=== PATIENT | female | born 1935 | race African-American/Black ===

== ENCOUNTER → 2016-07-27 | Outpatient (CLI) | payer MEDICARE, BC ==
[~2016-07-27] MED LIST: ACET325C PO; AMLO-511 PO; ASPI81TA2 PO; BENZ-26 PO; CAPS60CR TP; DEXT1CAP3 PO; DICL2100G TP; DOCU250C91 PO; FERR-89 PO; LACT1TAB11 PO; MIRT15 PO; MULT-29 PO; NYST5L PO; PANT40TA25 PO; PHEN100C23 PO; RISP0.252 PO; SENN-161 PO; TYL3 PO
[2016-07-27 12:14] VITALS: BP 131/73
== END | disposition home or self-care (01) ==
LOC: SRCNTR 12:07
PROVIDERS: ATTEND Hospitalist
DX: I10 Essential (primary) hypertension (principal); D64.9 Anemia, unspecified; I69.120 Aphasia following nontraumatic intracerebral hemorrhage; K46.9 Unspecified abdominal hernia without obstruction or gangrene; R60.0 Localized edema; I82.409 Acute embolism and thrombosis of unspecified deep veins of unspecified lower extremity; I61.9 Nontraumatic intracerebral hemorrhage, unspecified; H53.9 Unspecified visual disturbance; H10.9 Unspecified conjunctivitis; L91.8 Other hypertrophic disorders of the skin; I63.8 Other cerebral infarction; E78.5 Hyperlipidemia, unspecified; M19.90 Unspecified osteoarthritis, unspecified site; Z95.828 Presence of other vascular implants and grafts
CPT/HCPCS: G0463

== ENCOUNTER → 2016-07-31 | Outpatient (CLI) | payer MEDICARE, BC ==
[~2016-07-31] MED LIST changes: -ACET325C PO; -BENZ-26 PO; -DOCU250C91 PO; -NYST5L PO; -PANT40TA25 PO; -PHEN100C23 PO; -TYL3 PO
[2016-07-31 10:31] VITALS: BP 111/81
== END | disposition home or self-care (01) ==
LOC: SRCNTR 10:11
PROVIDERS: ATTEND Hospitalist
DX: I10 Essential (primary) hypertension (principal); E78.5 Hyperlipidemia, unspecified; R47.01 Aphasia; I82.409 Acute embolism and thrombosis of unspecified deep veins of unspecified lower extremity; R60.0 Localized edema; R51 Headache; M19.90 Unspecified osteoarthritis, unspecified site; H10.9 Unspecified conjunctivitis; K46.9 Unspecified abdominal hernia without obstruction or gangrene; Z86.73 Personal history of transient ischemic attack (TIA), and cerebral infarction without residual deficits; Z86.79 Personal history of other diseases of the circulatory system; Z95.828 Presence of other vascular implants and grafts
CPT/HCPCS: G0463

== ENCOUNTER → 2016-07-31 | Outpatient (CLI) | payer MEDICARE, BC ==
[2016-07-31 10:39] LABS: BASOPHILS # (AUTO) 0.06 K/uL (0.00-0.20); BASOPHILS % (AUTO) 0.6 % (0.0-2.0); EOSINOPHILS # (AUTO) 0.32 K/uL (0.00-0.70); EOSINOPHILS % (AUTO) 3.51 % (1.0-6.0); HEMATOCRIT 42.9 % (36-46); HEMOGLOBIN 13.6 g/dL (12.0-16.0); LYMPHOCYTES # (AUTO) 2.8 K/uL (1.0-4.8); LYMPHOCYTES % (AUTO) 30.6 % (22.0-44.0); MEAN CORPUSCULAR HEMOGLOBIN 29.7 pg (26.0-34.0); MEAN CORPUSCULAR HGB CONC 31.8 G/dL (31.0-37.0); MEAN CORPUSCULAR VOLUME 94 fL (80-100); MONOCYTES # (AUTO) 0.8 K/uL (0.1-1.0); MONOCYTES % (AUTO) 8.9 % (2.0-9.0); NEUTROPHILS # (AUTO) 5.1 K/uL (1.8-7.7); NEUTROPHILS % (AUTO) 56.3 % (40.0-70.0); PLATELET COUNT (AUTO) 160 K/uL (150-450); RED BLOOD CELL COUNT(AUTO) 4.58 MIL/uL (4.00-5.20); RED CELL DISTRIBUTION WIDTH 14.5 % (11.5-14.5)
[2016-07-31 11:16] LABS: BILIRUBIN,TOTAL 0.2 mg/dL (0.1-1.0); CALCIUM, TOTAL 9.6 mg/dL (8.8-10.5); CHOL/HDL RATIO 5.7 (3.9-5.7); CREATININE 1.06 mg/dL (0.60-1.30); POTASSIUM 4.2 mmol/L (3.5-5.1); THYROID STIMULATING HORMONE 4.35 uIU/mL (0.36-3.74); TOTAL PROTEIN, SERUM 8.4 g/dL (6.4-8.2)
== END | disposition home or self-care (01) ==
LOC: LABPV 09:25
PROVIDERS: ATTEND Hospitalist
DX: I10 Essential (primary) hypertension (principal); K46.9 Unspecified abdominal hernia without obstruction or gangrene
CPT/HCPCS: 84439; 84443

== ENCOUNTER → 2016-09-25 | Outpatient (CLI) | payer MEDICARE, BC ==
[~2016-09-25] MED LIST changes: +[UNRECOGNIZED DRUG - CODE] PO
[2016-09-25 11:56] VITALS: BP 109/56
== END | disposition home or self-care (01) ==
LOC: SRCNTR 11:19
PROVIDERS: ATTEND Hospitalist
DX: E03.9 Hypothyroidism, unspecified (principal)
CPT/HCPCS: G0463

== ENCOUNTER → 2016-11-20 | Outpatient (CLI) | payer MEDICARE, BC ==
[~2016-11-20] MED LIST changes: -ASPI81TA2 PO; +ASPI81TA39 PO; +DSS100 PO; -FERR-89 PO; +HYDR-309 PO; +LEVO25TA9 PO; +[UNRECOGNIZED DRUG - CODE] PO; -[UNRECOGNIZED DRUG - CODE] PO
[2016-11-20 11:48] VITALS: BP 113/61
== END | disposition home or self-care (01) ==
LOC: SRCNTR 11:22
PROVIDERS: ATTEND Hospitalist
DX: I10 Essential (primary) hypertension (principal); E03.9 Hypothyroidism, unspecified; R60.1 Generalized edema; I82.409 Acute embolism and thrombosis of unspecified deep veins of unspecified lower extremity; I61.9 Nontraumatic intracerebral hemorrhage, unspecified; K46.9 Unspecified abdominal hernia without obstruction or gangrene; R47.01 Aphasia; E78.5 Hyperlipidemia, unspecified; M19.90 Unspecified osteoarthritis, unspecified site; Z95.828 Presence of other vascular implants and grafts
CPT/HCPCS: G0463

== ENCOUNTER 2016-12-15 13:22 | Inpatient (IN) | payer MEDICARE, BC ==
[~2016-12-15] VITALS: Ht 160 cm; Wt 105.0 kg
[2016-12-15 15:42] LABS: BASOPHILS % (AUTO) 1.1 % (0.0-2.0); EOSINOPHILS % (AUTO) 4.1 % (1.0-6.0); HEMATOCRIT 39.2 % (36-46); HEMOGLOBIN 13.1 g/dL (12.0-16.0); LYMPHOCYTES # (AUTO) 2.8 K/uL (1.0-4.8); LYMPHOCYTES % (AUTO) 32.2 % (22.0-44.0); MEAN CORPUSCULAR HGB CONC 33.3 G/dL (31.0-37.0); MEAN CORPUSCULAR VOLUME 90 fL (80-100); MONOCYTES # (AUTO) 0.8 K/uL (0.1-1.0); MONOCYTES % (AUTO) 9.6 % (2.0-9.0); NEUTROPHILS # (AUTO) 4.6 K/uL (1.8-7.7); PLATELET COUNT (AUTO) 161 K/uL (150-450); RED BLOOD CELL COUNT(AUTO) 4.36 MIL/uL (4.00-5.20); RED CELL DISTRIBUTION WIDTH 14.1 % (11.5-14.5); WHITE BLOOD COUNT (AUTO) 8.7 K/uL (4.5-11.0)
[2016-12-15] MEDS ORDERED: GADOBUTROL 1 MMOL/ML 10 ML VIAL IVP ONE (15:42)
[2016-12-15 15:53] LABS: ANION GAP 9 mmol/L (8-16); CALCIUM, TOTAL 9.6 mg/dL (8.8-10.5); CARBON DIOXIDE 29 mmol/L (22-29); CHLORIDE 103 mmol/L (98-107); CREATININE 0.88 mg/dL (0.60-1.30); GLOMERULAR FILTR. RATE CALC > 60 mL/min (>60); POTASSIUM 4.1 mmol/L (3.5-5.1); SODIUM SERUM 141 mmol/L (136-145); UREA NITROGEN, BLOOD 14 mg/dL (7-18)
[2016-12-15 15:59] LABS: ALANINE AMINOTRANSFERASE 22 U/L (12-78); ALBUMIN 3.9 g/dL (3.4-5.0); ASPARTATE AMINOTRANSFERASE 16 U/L (15-37); BILIRUBIN,TOTAL 0.2 mg/dL (0.1-1.0); TOTAL PROTEIN, SERUM 8.3 g/dL (6.4-8.2)
[2016-12-15 16:05] LABS: INR 0.9 (0.9-1.1); PROTHROMBIN TIME 9.9 SEC (9.4-11.6)
[2016-12-15 18:41] LABS: APPEARANCE,URINE CLOUDY (CLEAR); GLUCOSE, URINE (UA) NEGATIVE (NEGATIVE); KETONES,URINE NEGATIVE (NEGATIVE); LEUKOCYTE ESTERASE ,URINE NEGATIVE (NEGATIVE); OCCULT BLOOD,URINE SMALL (NEGATIVE); PH,URINE 5.5 (5.0-8.0); PROTEIN,URINE NEGATIVE (NEGATIVE)
[2016-12-15 18:47] LABS: ADD UA MICROSCOPIC YES
[2016-12-15 18:48] LABS: SQUAMOUS EPITHELIAL CELL,UR Moderate /LPF (None Seen)
[2016-12-15] MEDS ORDERED: ZOLPIDEM TARTRATE 5 MG TABLET PO PRN (19:00)
[2016-12-15] MEDS ORDERED: IPRATROPIUM BROMIDE 0.5 MG/2.5 ML NEB SOLUTION NEB PRN (19:00)
[2016-12-15] MEDS ORDERED: ACETAMINOPHEN 325 MG TABLET PO PRN (19:00)
[2016-12-15] MEDS ORDERED: ALBUTEROL SULFATE 2.5 MG/0.5 ML NEB SOLUTION NEB PRN (19:00)
[2016-12-15] MEDS ORDERED: DEXTROMETHORPHAN HBR/QUINIDINE 20/10 MG CAPSULE PO SCH (19:00)
[2016-12-15] MEDS ORDERED: ONDANSETRON HCL 4 MG/2 ML VIAL IVP PRN (19:00)
[2016-12-15 19:42] VITALS: BP 139/73
[2016-12-15] MEDS: SENNA 187 MG TABLET PO SCH (20:40)
[2016-12-15] MEDS: HYDROCODONE/ACETAMINOPHEN 5-325 MG TABLET PO SCH ×2 (20:40→23:00)
[2016-12-15] MEDS: DOCUSATE SODIUM 100 MG CAPSULE PO SCH (20:40)
[2016-12-15] MEDS: MIRTAZAPINE 15 MG TABLET PO SCH (20:42)
[2016-12-16 00:03] VITALS: BP 100/53
[2016-12-16] MEDS: HYDROCODONE/ACETAMINOPHEN 5-325 MG TABLET PO SCH ×3 (03:00→11:00)
[2016-12-16 04:33] VITALS: BP 112/59
[2016-12-16 07:09] VITALS: BP 107/59
[2016-12-16] MEDS: DOCUSATE SODIUM 100 MG CAPSULE PO SCH ×2 (08:48→21:12)
[2016-12-16] MEDS: PANTOPRAZOLE SODIUM 40 MG DR TABLET PO SCH (08:48)
[2016-12-16] MEDS: MULTIVITAMINS WITH MINERALS, THERAPEUTIC TABLET PO SCH (08:49)
[2016-12-16] MEDS: LACTOBACILLUS ACIDOPHILUS/BULGARICUS GRANULES PACKET PO SCH (08:49)
[2016-12-16] MEDS: LEVOTHYROXINE SODIUM 25 MCG TABLET PO SCH (08:49)
[2016-12-16] MEDS: ASCORBIC ACID 500 MG TABLET PO SCH (08:49)
[2016-12-16] MEDS: DICLOFENAC SODIUM 1% 100 GM GEL [2GM] TP SCH (08:50)
[2016-12-16] MEDS: DEXTROMETHORPHAN HBR/QUINIDINE 20/10 MG CAPSULE PO SCH ×2 (09:00→21:14)
[2016-12-16 11:39] VITALS: BP 100/54
[2016-12-16] MEDS ORDERED: HYDROCODONE/ACETAMINOPHEN 5-325 MG TABLET PO PRN (15:00)
[2016-12-16] MEDS ORDERED: INFLUENZA VIRUS VACCINE QVS 2017-18 (3YR+)/PF 60 MCG/0.5 ML SYRINGE IM ONE (16:00)
[2016-12-16 16:09] VITALS: BP 117/58
[2016-12-16] MEDS ORDERED: SIMV-260 PO (18:10)
[2016-12-16 19:55] VITALS: BP 118/62
[2016-12-16] MEDS: SENNA 187 MG TABLET PO SCH (21:12)
[2016-12-16] MEDS: MIRTAZAPINE 15 MG TABLET PO SCH (21:12)
[2016-12-17] VITALS (7 sets, daily range): BP systolic 112–143; BP diastolic 58–84
[2016-12-17] MEDS: PANTOPRAZOLE SODIUM 40 MG DR TABLET PO SCH (08:12)
[2016-12-17] MEDS: DOCUSATE SODIUM 100 MG CAPSULE PO SCH ×2 (08:12→21:15)
[2016-12-17] MEDS: LACTOBACILLUS ACIDOPHILUS/BULGARICUS GRANULES PACKET PO SCH (08:12)
[2016-12-17] MEDS: MULTIVITAMINS WITH MINERALS, THERAPEUTIC TABLET PO SCH (08:13)
[2016-12-17] MEDS: DEXTROMETHORPHAN HBR/QUINIDINE 20/10 MG CAPSULE PO SCH ×2 (08:13→21:15)
[2016-12-17] MEDS: LEVOTHYROXINE SODIUM 25 MCG TABLET PO SCH (08:13)
[2016-12-17] MEDS: DICLOFENAC SODIUM 1% 100 GM GEL [2GM] TP SCH (08:14)
[2016-12-17] MEDS: ASCORBIC ACID 500 MG TABLET PO SCH (08:14)
[2016-12-17] MEDS ORDERED: SODIUM CHLORIDE 0.9% 100 ML ONE (13:06)
[2016-12-17] MEDS: CefTRIAXone 1 GM/DEXTROSE 50 ML IV SCH (13:20)
[2016-12-17 14:02] LABS: THYROID STIMULATING HORMONE 4.03 uIU/mL (0.36-3.74)
[2016-12-17] MEDS: SENNA 187 MG TABLET PO SCH (21:15)
[2016-12-17] MEDS: MIRTAZAPINE 15 MG TABLET PO SCH (21:15)
[2016-12-18 04:24] VITALS: BP 119/67
[2016-12-18 06:34] LABS: BASOPHILS % (AUTO) 0.5 % (0.0-2.0); EOSINOPHILS % (AUTO) 4.2 % (1.0-6.0); HEMATOCRIT 33.9 % (36-46); HEMOGLOBIN 11.3 g/dL (12.0-16.0); LYMPHOCYTES # (AUTO) 2.3 K/uL (1.0-4.8); LYMPHOCYTES % (AUTO) 30.1 % (22.0-44.0); MEAN CORPUSCULAR HEMOGLOBIN 30.1 pg (26.0-34.0); MEAN CORPUSCULAR HGB CONC 33.4 G/dL (31.0-37.0); MEAN CORPUSCULAR VOLUME 90 fL (80-100); MONOCYTES # (AUTO) 0.8 K/uL (0.1-1.0); MONOCYTES % (AUTO) 9.9 % (2.0-9.0); NEUTROPHILS # (AUTO) 4.3 K/uL (1.8-7.7); NEUTROPHILS % (AUTO) 55.3 % (40.0-70.0); PLATELET COUNT (AUTO) 175 K/uL (150-450); RED BLOOD CELL COUNT(AUTO) 3.77 MIL/uL (4.00-5.20); WHITE BLOOD COUNT (AUTO) 7.7 K/uL (4.5-11.0)
[2016-12-18 06:58] LABS: ALANINE AMINOTRANSFERASE 16 U/L (12-78); ALBUMIN 3.1 g/dL (3.4-5.0); ANION GAP 6 mmol/L (8-16); ASPARTATE AMINOTRANSFERASE 14 U/L (15-37); BILIRUBIN,TOTAL 0.2 mg/dL (0.1-1.0); CALCIUM, TOTAL 8.6 mg/dL (8.8-10.5); CARBON DIOXIDE 30 mmol/L (22-29); CHLORIDE 104 mmol/L (98-107); CREATININE 1.01 mg/dL (0.60-1.30); GLOMERULAR FILTR. RATE CALC > 60 mL/min (>60); POTASSIUM 3.8 mmol/L (3.5-5.1); SODIUM SERUM 140 mmol/L (136-145); TOTAL PROTEIN, SERUM 6.5 g/dL (6.4-8.2); UREA NITROGEN, BLOOD 16 mg/dL (7-18)
[2016-12-18 07:05] VITALS: BP 146/74
[2016-12-18] MEDS: PANTOPRAZOLE SODIUM 40 MG DR TABLET PO SCH (08:41)
[2016-12-18] MEDS: DEXTROMETHORPHAN HBR/QUINIDINE 20/10 MG CAPSULE PO SCH ×2 (08:41→21:36)
[2016-12-18] MEDS: AmLODIPine BESYLATE 5 MG TABLET PO SCH (08:41)
[2016-12-18] MEDS: DOCUSATE SODIUM 100 MG CAPSULE PO SCH ×2 (08:41→21:36)
[2016-12-18] MEDS: LACTOBACILLUS ACIDOPHILUS/BULGARICUS GRANULES PACKET PO SCH (08:41)
[2016-12-18] MEDS: ASCORBIC ACID 500 MG TABLET PO SCH (08:43)
[2016-12-18] MEDS: DICLOFENAC SODIUM 1% 100 GM GEL [2GM] TP SCH (08:43)
[2016-12-18] MEDS: MULTIVITAMINS WITH MINERALS, THERAPEUTIC TABLET PO SCH (08:43)
[2016-12-18 11:08] VITALS: BP 126/73
[2016-12-18] MEDS: CefTRIAXone 1 GM/DEXTROSE 50 ML IV SCH (12:06)
[2016-12-18 15:15] VITALS: BP 136/73
[2016-12-18 19:35] VITALS: BP 111/62
[2016-12-18] MEDS: SENNA 187 MG TABLET PO SCH (21:36)
[2016-12-18] MEDS: MIRTAZAPINE 15 MG TABLET PO SCH (21:36)
[2016-12-18] MEDS: SIMVASTATIN 20 MG TABLET PO SCH (21:36)
[2016-12-18 23:58] VITALS: BP 116/63
[2016-12-19 04:52] VITALS: BP 128/70
[2016-12-19] MEDS: LEVOTHYROXINE SODIUM 75 MCG TABLET PO SCH (06:20)
[2016-12-19 06:24] LABS: BASOPHILS % (AUTO) 0.4 % (0.0-2.0); EOSINOPHILS % (AUTO) 4.1 % (1.0-6.0); HEMATOCRIT 35.1 % (36-46); HEMOGLOBIN 11.8 g/dL (12.0-16.0); LYMPHOCYTES # (AUTO) 2.4 K/uL (1.0-4.8); LYMPHOCYTES % (AUTO) 29.5 % (22.0-44.0); MEAN CORPUSCULAR HEMOGLOBIN 30.4 pg (26.0-34.0); MEAN CORPUSCULAR HGB CONC 33.5 G/dL (31.0-37.0); MEAN CORPUSCULAR VOLUME 91 fL (80-100); MONOCYTES # (AUTO) 0.8 K/uL (0.1-1.0); MONOCYTES % (AUTO) 9.5 % (2.0-9.0); NEUTROPHILS # (AUTO) 4.6 K/uL (1.8-7.7); NEUTROPHILS % (AUTO) 56.5 % (40.0-70.0); PLATELET COUNT (AUTO) 176 K/uL (150-450); RED BLOOD CELL COUNT(AUTO) 3.87 MIL/uL (4.00-5.20); RED CELL DISTRIBUTION WIDTH 14.1 % (11.5-14.5); WHITE BLOOD COUNT (AUTO) 8.2 K/uL (4.5-11.0)
[2016-12-19 07:12] LABS: ALBUMIN 3.3 g/dL (3.4-5.0); BILIRUBIN,TOTAL 0.2 mg/dL (0.1-1.0); CALCIUM, TOTAL 8.8 mg/dL (8.8-10.5); CREATININE 1.1 mg/dL (0.60-1.30); TOTAL PROTEIN, SERUM 7.1 g/dL (6.4-8.2)
[2016-12-19 07:26] VITALS: BP 127/74
[2016-12-19] MEDS: ASCORBIC ACID 500 MG TABLET PO SCH (08:25)
[2016-12-19] MEDS: AmLODIPine BESYLATE 5 MG TABLET PO SCH (08:25)
[2016-12-19] MEDS: DOCUSATE SODIUM 100 MG CAPSULE PO SCH ×2 (08:25→20:19)
[2016-12-19] MEDS: MULTIVITAMINS WITH MINERALS, THERAPEUTIC TABLET PO SCH (08:25)
[2016-12-19] MEDS: DEXTROMETHORPHAN HBR/QUINIDINE 20/10 MG CAPSULE PO SCH ×2 (08:25→20:18)
[2016-12-19] MEDS: PANTOPRAZOLE SODIUM 40 MG DR TABLET PO SCH (08:25)
[2016-12-19] MEDS: LACTOBACILLUS ACIDOPHILUS/BULGARICUS GRANULES PACKET PO SCH (08:26)
[2016-12-19] MEDS: DICLOFENAC SODIUM 1% 100 GM GEL [2GM] TP SCH (08:26)
[2016-12-19 10:37] LABS: GLUCOSE,POINT OF CARE 138 MG/DL (70-110)
[2016-12-19 11:40] VITALS: BP 123/59
[2016-12-19] MEDS: CefTRIAXone 1 GM/DEXTROSE 50 ML IV SCH (12:35)
[2016-12-19] MEDS ORDERED: SODIUM CHLORIDE 0.9% 100 ML ONE (12:36)
[2016-12-19 15:25] VITALS: BP 123/63
[2016-12-19 19:57] VITALS: BP 112/63
[2016-12-19] MEDS: SIMVASTATIN 20 MG TABLET PO SCH (20:19)
[2016-12-19] MEDS: SENNA 187 MG TABLET PO SCH (20:19)
[2016-12-19] MEDS: MIRTAZAPINE 15 MG TABLET PO SCH (20:19)
[2016-12-19 23:41] VITALS: BP 107/61
[2016-12-20 04:26] VITALS: BP 114/68
[2016-12-20 06:07] LABS: BASOPHILS % (AUTO) 0.6 % (0.0-2.0); EOSINOPHILS % (AUTO) 4.4 % (1.0-6.0); HEMATOCRIT 33.8 % (36-46); HEMOGLOBIN 11.3 g/dL (12.0-16.0); LYMPHOCYTES # (AUTO) 2.5 K/uL (1.0-4.8); LYMPHOCYTES % (AUTO) 30.3 % (22.0-44.0); MEAN CORPUSCULAR HEMOGLOBIN 30.3 pg (26.0-34.0); MEAN CORPUSCULAR HGB CONC 33.5 G/dL (31.0-37.0); MEAN CORPUSCULAR VOLUME 90 fL (80-100); MONOCYTES # (AUTO) 0.7 K/uL (0.1-1.0); MONOCYTES % (AUTO) 8.6 % (2.0-9.0); NEUTROPHILS # (AUTO) 4.5 K/uL (1.8-7.7); NEUTROPHILS % (AUTO) 56.1 % (40.0-70.0); PLATELET COUNT (AUTO) 174 K/uL (150-450); RED BLOOD CELL COUNT(AUTO) 3.74 MIL/uL (4.00-5.20); RED CELL DISTRIBUTION WIDTH 14.2 % (11.5-14.5); WHITE BLOOD COUNT (AUTO) 8.1 K/uL (4.5-11.0)
[2016-12-20] MEDS: LEVOTHYROXINE SODIUM 75 MCG TABLET PO SCH (06:35)
[2016-12-20 06:38] LABS: ALANINE AMINOTRANSFERASE 18 U/L (12-78); ALBUMIN 3.2 g/dL (3.4-5.0); ANION GAP 7 mmol/L (8-16); ASPARTATE AMINOTRANSFERASE 14 U/L (15-37); BILIRUBIN,TOTAL 0.2 mg/dL (0.1-1.0); CALCIUM, TOTAL 8.6 mg/dL (8.8-10.5); CARBON DIOXIDE 30 mmol/L (22-29); CHLORIDE 105 mmol/L (98-107); CREATININE 1.03 mg/dL (0.60-1.30); GLOMERULAR FILTR. RATE CALC > 60 mL/min (>60); POTASSIUM 3.9 mmol/L (3.5-5.1); SODIUM SERUM 142 mmol/L (136-145); TOTAL PROTEIN, SERUM 6.6 g/dL (6.4-8.2); UREA NITROGEN, BLOOD 18 mg/dL (7-18)
[2016-12-20 07:35] VITALS: BP 126/71
[2016-12-20] MEDS: DOCUSATE SODIUM 100 MG CAPSULE PO SCH (09:00)
[2016-12-20] MEDS: LACTOBACILLUS ACIDOPHILUS/BULGARICUS GRANULES PACKET PO SCH (09:21)
[2016-12-20] MEDS: DEXTROMETHORPHAN HBR/QUINIDINE 20/10 MG CAPSULE PO SCH (09:21)
[2016-12-20] MEDS: AmLODIPine BESYLATE 5 MG TABLET PO SCH (09:21)
[2016-12-20] MEDS: ASCORBIC ACID 500 MG TABLET PO SCH (09:22)
[2016-12-20] MEDS: MULTIVITAMINS WITH MINERALS, THERAPEUTIC TABLET PO SCH (09:22)
[2016-12-20] MEDS: DICLOFENAC SODIUM 1% 100 GM GEL [2GM] TP SCH (09:22)
[2016-12-20] MEDS: PANTOPRAZOLE SODIUM 40 MG DR TABLET PO SCH (09:22)
[2016-12-20] MEDS: CefTRIAXone 1 GM/DEXTROSE 50 ML IV SCH (11:13)
[2016-12-20 12:03] VITALS: BP 123/65
[2016-12-20] MEDS ORDERED: CEFX1I IV (12:07)
[2016-12-20] MEDS ORDERED: CEFX2I IV (12:07)
[2016-12-20] MEDS ORDERED: CEFT1PB IV (12:09)
[2016-12-20] MEDS ORDERED: LEVO25TA9 PO (12:19)
[2016-12-20] MEDS ORDERED: PANT40TA25 PO (12:21)
[2017-02-12] MEDS ORDERED: KETO5DRO75 OP (11:06)
== END 2016-12-20 12:20 | DRG 65 ==
LOC: EMS 13:26 → 5S 18:29
PROVIDERS: ADMIT Hospitalist; ATTEND Hospitalist
PROC: 3E0234Z Introduction of Serum, Toxoid and Vaccine into Muscle, Percutaneous Approach (ICD-10-PCS; principal; 2016-12-16)
DX: I63.9 Cerebral infarction, unspecified (principal); N39.0 Urinary tract infection, site not specified; E44.0 Moderate protein-calorie malnutrition; G93.89 Other specified disorders of brain; Z68.41 Body mass index [BMI] 40.0-44.9, adult; I67.2 Cerebral atherosclerosis; F48.2 Pseudobulbar affect; E03.9 Hypothyroidism, unspecified; B96.20 Unspecified Escherichia coli [E. coli] as the cause of diseases classified elsewhere; E78.5 Hyperlipidemia, unspecified; I10 Essential (primary) hypertension; Z86.711 Personal history of pulmonary embolism; I69.320 Aphasia following cerebral infarction; Z23 Encounter for immunization
CPT/HCPCS: 70450; 70553; 82962; 84439; 84443; 87086; 90471; 93005; 93880; 93970; 97163; 97167; 97530; 97535; 99285; A9585; J0696; J7050

== ENCOUNTER 2016-12-20 12:45 | Inpatient (IN) | payer MEDICARE, BC ==
[~2016-12-20] VITALS: Ht 162.6 cm; Wt 81.2 kg
[~2016-12-20 12:45] MED LIST changes: -CAPS60CR TP; +CEFT1PB IV; +CEFX1I IV; +CEFX2I IV; +PANT40TA25 PO; -SENN-161 PO; +SIMV-260 PO
[2016-12-20 13:00] VITALS: BP 115/64
[2016-12-20] MEDS ORDERED: ACETAMINOPHEN 325 MG TABLET PO PRN (14:30)
[2016-12-20 15:45] VITALS: BP 122/67
[2016-12-20] MEDS: DICLOFENAC SODIUM 1% 100 GM GEL [2GM] TP SCH (20:29)
[2016-12-20] MEDS: DEXTROMETHORPHAN HBR/QUINIDINE 20/10 MG CAPSULE PO SCH (20:29)
[2016-12-20] MEDS: MIRTAZAPINE 15 MG TABLET PO SCH (20:31)
[2016-12-20] MEDS: SIMVASTATIN 20 MG TABLET PO SCH (20:32)
[2016-12-20] MEDS ORDERED: SODIUM CHLORIDE 0.9% 100 ML ONE (23:00)
[2016-12-21] MEDS: 0.9% SODIUM CHLORIDE 10 ML SYRINGE IVP SCH ×4 (00:14→23:47)
[2016-12-21 04:45] VITALS: BP 119/67
[2016-12-21] MEDS: CefTRIAXone 1 GM/DEXTROSE 50 ML IV SCH (05:01)
[2016-12-21] MEDS: LEVOTHYROXINE SODIUM 25 MCG TABLET PO SCH (06:13)
[2016-12-21 06:50] LABS: BASOPHILS # (AUTO) 0.05 K/uL (0.00-0.20); BASOPHILS % (AUTO) 0.7 % (0.0-2.0); EOSINOPHILS # (AUTO) 0.37 K/uL (0.00-0.70); EOSINOPHILS % (AUTO) 4.84 % (1.0-6.0); HEMATOCRIT 34.7 % (36-46); HEMOGLOBIN 11.3 g/dL (12.0-16.0); LYMPHOCYTES # (AUTO) 2.1 K/uL (1.0-4.8); LYMPHOCYTES % (AUTO) 27.8 % (22.0-44.0); MEAN CORPUSCULAR HEMOGLOBIN 29.8 pg (26.0-34.0); MEAN CORPUSCULAR HGB CONC 32.7 G/dL (31.0-37.0); MEAN CORPUSCULAR VOLUME 91 fL (80-100); MONOCYTES # (AUTO) 0.7 K/uL (0.1-1.0); MONOCYTES % (AUTO) 8.5 % (2.0-9.0); NEUTROPHILS # (AUTO) 4.5 K/uL (1.8-7.7); NEUTROPHILS % (AUTO) 58.2 % (40.0-70.0); PLATELET COUNT (AUTO) 167 K/uL (150-450); RED CELL DISTRIBUTION WIDTH 14.1 % (11.5-14.5); WHITE BLOOD COUNT (AUTO) 7.6 K/uL (4.5-11.0)
[2016-12-21 07:21] LABS: ALANINE AMINOTRANSFERASE 16 U/L (12-78); ALBUMIN 3.3 g/dL (3.4-5.0); ANION GAP 7 mmol/L (8-16); ASPARTATE AMINOTRANSFERASE 15 U/L (15-37); BILIRUBIN,TOTAL 0.1 mg/dL (0.1-1.0); CALCIUM, TOTAL 8.6 mg/dL (8.8-10.5); CARBON DIOXIDE 28 mmol/L (22-29); CHLORIDE 106 mmol/L (98-107); CREATININE 0.96 mg/dL (0.60-1.30); GLOMERULAR FILTR. RATE CALC > 60 mL/min (>60); POTASSIUM 3.9 mmol/L (3.5-5.1); SODIUM SERUM 141 mmol/L (136-145); TOTAL PROTEIN, SERUM 7.1 g/dL (6.4-8.2); UREA NITROGEN, BLOOD 14 mg/dL (7-18)
[2016-12-21 07:40] VITALS: BP 126/66
[2016-12-21] MEDS: LACTOBACILLUS ACIDOPHILUS/BULGARICUS GRANULES PACKET PO SCH (08:30)
[2016-12-21] MEDS: DOCUSATE SODIUM 100 MG CAPSULE PO SCH (08:31)
[2016-12-21] MEDS: MULTIVITAMINS WITH MINERALS, THERAPEUTIC TABLET PO SCH (08:31)
[2016-12-21] MEDS: PANTOPRAZOLE SODIUM 40 MG DR TABLET PO SCH (08:31)
[2016-12-21] MEDS: AmLODIPine BESYLATE 5 MG TABLET PO SCH (08:31)
[2016-12-21] MEDS: DICLOFENAC SODIUM 1% 100 GM GEL [2GM] TP SCH ×2 (08:31→19:50)
[2016-12-21] MEDS: DEXTROMETHORPHAN HBR/QUINIDINE 20/10 MG CAPSULE PO SCH ×2 (08:32→19:50)
[2016-12-21] MEDS: ASCORBIC ACID 500 MG TABLET PO SCH (08:35)
[2016-12-21 09:25] LABS: APPEARANCE,URINE CLEAR (CLEAR); GLUCOSE, URINE (UA) NEGATIVE (NEGATIVE); KETONES,URINE NEGATIVE (NEGATIVE); LEUKOCYTE ESTERASE ,URINE NEGATIVE (NEGATIVE); OCCULT BLOOD,URINE NEGATIVE (NEGATIVE); PROTEIN,URINE NEGATIVE (NEGATIVE)
[2016-12-21 09:49] LABS: ADD UA MICROSCOPIC NO
[2016-12-21 15:32] VITALS: BP 117/64
[2016-12-21] MEDS ORDERED: CefTRIAXone 1 GM/DEXTROSE 50 ML IV SCH (16:00)
[2016-12-21] MEDS: SIMVASTATIN 20 MG TABLET PO SCH (19:50)
[2016-12-21] MEDS: MIRTAZAPINE 15 MG TABLET PO SCH (19:50)
[2016-12-22 01:17] VITALS: BP 102/54
[2016-12-22] MEDS: CefTRIAXone 1 GM/DEXTROSE 50 ML IV SCH (05:07)
[2016-12-22] MEDS: LEVOTHYROXINE SODIUM 25 MCG TABLET PO SCH (06:10)
[2016-12-22 07:35] VITALS: BP 108/63
[2016-12-22] MEDS: DICLOFENAC SODIUM 1% 100 GM GEL [2GM] TP SCH ×2 (08:10→21:05)
[2016-12-22] MEDS: MULTIVITAMINS WITH MINERALS, THERAPEUTIC TABLET PO SCH (08:10)
[2016-12-22] MEDS: ASCORBIC ACID 500 MG TABLET PO SCH (08:10)
[2016-12-22] MEDS: DOCUSATE SODIUM 100 MG CAPSULE PO SCH (08:10)
[2016-12-22] MEDS: 0.9% SODIUM CHLORIDE 10 ML SYRINGE IVP SCH ×2 (08:10→16:00)
[2016-12-22] MEDS: DEXTROMETHORPHAN HBR/QUINIDINE 20/10 MG CAPSULE PO SCH ×2 (08:10→21:04)
[2016-12-22] MEDS: PANTOPRAZOLE SODIUM 40 MG DR TABLET PO SCH (08:10)
[2016-12-22] MEDS: AmLODIPine BESYLATE 5 MG TABLET PO SCH (08:10)
[2016-12-22] MEDS: LACTOBACILLUS ACIDOPHILUS/BULGARICUS GRANULES PACKET PO SCH (08:11)
[2016-12-22] MEDS ORDERED: ASPIRIN 81 MG EC TABLET PO SCH (09:00)
[2016-12-22 15:30] VITALS: BP 115/64
[2016-12-22] MEDS: SIMVASTATIN 20 MG TABLET PO SCH (21:05)
[2016-12-22] MEDS: MIRTAZAPINE 15 MG TABLET PO SCH (21:07)
[2016-12-22 23:30] VITALS: BP 113/70
[2016-12-23] MEDS: LEVOTHYROXINE SODIUM 25 MCG TABLET PO SCH (06:16)
[2016-12-23] MEDS: DICLOFENAC SODIUM 1% 100 GM GEL [2GM] TP SCH ×2 (07:57→20:17)
[2016-12-23] MEDS: DEXTROMETHORPHAN HBR/QUINIDINE 20/10 MG CAPSULE PO SCH ×2 (07:58→20:17)
[2016-12-23] MEDS: ASCORBIC ACID 500 MG TABLET PO SCH (07:58)
[2016-12-23] MEDS: MULTIVITAMINS WITH MINERALS, THERAPEUTIC TABLET PO SCH (07:58)
[2016-12-23] MEDS: PANTOPRAZOLE SODIUM 40 MG DR TABLET PO SCH (07:58)
[2016-12-23] MEDS: LACTOBACILLUS ACIDOPHILUS/BULGARICUS GRANULES PACKET PO SCH (07:58)
[2016-12-23] MEDS: AmLODIPine BESYLATE 5 MG TABLET PO SCH (07:58)
[2016-12-23 08:00] VITALS: BP 114/66
[2016-12-23] MEDS ORDERED: CLOPIDOGREL BISULFATE 75 MG TABLET PO SCH (08:00)
[2016-12-23 16:37] VITALS: BP 126/68
[2016-12-23] MEDS: SIMVASTATIN 20 MG TABLET PO SCH (20:17)
[2016-12-23] MEDS: MIRTAZAPINE 15 MG TABLET PO SCH (20:17)
[2016-12-23 23:04] VITALS: BP 116/68
[2016-12-24] MEDS: LEVOTHYROXINE SODIUM 25 MCG TABLET PO SCH (05:48)
[2016-12-24 08:00] VITALS: BP 134/78
[2016-12-24] MEDS: DICLOFENAC SODIUM 1% 100 GM GEL [2GM] TP SCH ×2 (08:20→20:06)
[2016-12-24] MEDS: AmLODIPine BESYLATE 5 MG TABLET PO SCH (08:20)
[2016-12-24] MEDS: DEXTROMETHORPHAN HBR/QUINIDINE 20/10 MG CAPSULE PO SCH ×2 (08:20→20:06)
[2016-12-24] MEDS: ASCORBIC ACID 500 MG TABLET PO SCH (08:20)
[2016-12-24] MEDS: MULTIVITAMINS WITH MINERALS, THERAPEUTIC TABLET PO SCH (08:20)
[2016-12-24] MEDS: PANTOPRAZOLE SODIUM 40 MG DR TABLET PO SCH (08:21)
[2016-12-24] MEDS: LACTOBACILLUS ACIDOPHILUS/BULGARICUS GRANULES PACKET PO SCH (08:21)
[2016-12-24 16:25] VITALS: BP 111/57
[2016-12-24] MEDS: SIMVASTATIN 20 MG TABLET PO SCH (20:06)
[2016-12-24] MEDS: MIRTAZAPINE 15 MG TABLET PO SCH (20:06)
[2016-12-25 01:30] VITALS: BP 106/59
[2016-12-25] MEDS: LEVOTHYROXINE SODIUM 25 MCG TABLET PO SCH (06:24)
[2016-12-25 06:51] LABS: APPEARANCE,URINE CLOUDY (CLEAR); GLUCOSE, URINE (UA) NEGATIVE (NEGATIVE); KETONES,URINE NEGATIVE (NEGATIVE); LEUKOCYTE ESTERASE ,URINE NEGATIVE (NEGATIVE); OCCULT BLOOD,URINE TRACE (NEGATIVE); PH,URINE 5.5 (5.0-8.0); PROTEIN,URINE NEGATIVE (NEGATIVE)
[2016-12-25 06:58] LABS: CALCIUM OXALATE CRYSTALS,UR Moderate /LPF (None Seen); SQUAMOUS EPITHELIAL CELL,UR Few /LPF (None Seen)
[2016-12-25 07:30] VITALS: BP 111/62
[2016-12-25] MEDS: LACTOBACILLUS ACIDOPHILUS/BULGARICUS GRANULES PACKET PO SCH (08:21)
[2016-12-25] MEDS: DEXTROMETHORPHAN HBR/QUINIDINE 20/10 MG CAPSULE PO SCH ×2 (08:21→21:06)
[2016-12-25] MEDS: AmLODIPine BESYLATE 5 MG TABLET PO SCH (08:22)
[2016-12-25] MEDS: MULTIVITAMINS WITH MINERALS, THERAPEUTIC TABLET PO SCH (08:22)
[2016-12-25] MEDS: ASCORBIC ACID 500 MG TABLET PO SCH (08:22)
[2016-12-25] MEDS: PANTOPRAZOLE SODIUM 40 MG DR TABLET PO SCH (08:22)
[2016-12-25] MEDS: DICLOFENAC SODIUM 1% 100 GM GEL [2GM] TP SCH ×2 (08:23→21:06)
[2016-12-25 15:23] VITALS: BP 124/66
[2016-12-25] MEDS ORDERED: ASPIRIN 81 MG CHEWABLE TABLET PO ONE (21:00)
[2016-12-25] MEDS: MIRTAZAPINE 15 MG TABLET PO SCH (21:05)
[2016-12-25] MEDS: SIMVASTATIN 20 MG TABLET PO SCH (21:05)
[2016-12-26 02:30] VITALS: BP 122/63
[2016-12-26] MEDS: LEVOTHYROXINE SODIUM 25 MCG TABLET PO SCH (06:09)
[2016-12-26 07:15] VITALS: BP 123/68
[2016-12-26] MEDS: AmLODIPine BESYLATE 5 MG TABLET PO SCH (08:32)
[2016-12-26] MEDS: LACTOBACILLUS ACIDOPHILUS/BULGARICUS GRANULES PACKET PO SCH (08:32)
[2016-12-26] MEDS: MULTIVITAMINS WITH MINERALS, THERAPEUTIC TABLET PO SCH (08:32)
[2016-12-26] MEDS: DEXTROMETHORPHAN HBR/QUINIDINE 20/10 MG CAPSULE PO SCH ×2 (08:32→20:55)
[2016-12-26] MEDS: ASCORBIC ACID 500 MG TABLET PO SCH (08:32)
[2016-12-26] MEDS: PANTOPRAZOLE SODIUM 40 MG DR TABLET PO SCH (08:32)
[2016-12-26] MEDS: DICLOFENAC SODIUM 1% 100 GM GEL [2GM] TP SCH ×2 (08:32→20:55)
[2016-12-26] MEDS ORDERED: ASPIRIN 81 MG CHEWABLE TABLET PO SCH (10:15)
[2016-12-26 15:02] VITALS: BP 114/63
[2016-12-26] MEDS: DOCUSATE SODIUM 283 MG/5 ML MINI-ENEMA PR PRN (20:55)
[2016-12-26] MEDS: MIRTAZAPINE 15 MG TABLET PO SCH (20:55)
[2016-12-26] MEDS: SIMVASTATIN 20 MG TABLET PO SCH (20:55)
[2016-12-27 01:00] VITALS: BP 117/62
[2016-12-27] MEDS: LEVOTHYROXINE SODIUM 25 MCG TABLET PO SCH (06:05)
[2016-12-27] MEDS: ASCORBIC ACID 500 MG TABLET PO SCH (08:16)
[2016-12-27] MEDS: LACTOBACILLUS ACIDOPHILUS/BULGARICUS GRANULES PACKET PO SCH (08:16)
[2016-12-27] MEDS: MULTIVITAMINS WITH MINERALS, THERAPEUTIC TABLET PO SCH (08:16)
[2016-12-27] MEDS: DEXTROMETHORPHAN HBR/QUINIDINE 20/10 MG CAPSULE PO SCH ×2 (08:16→20:22)
[2016-12-27] MEDS: PANTOPRAZOLE SODIUM 40 MG DR TABLET PO SCH (08:16)
[2016-12-27] MEDS: DICLOFENAC SODIUM 1% 100 GM GEL [2GM] TP SCH ×2 (08:17→20:22)
[2016-12-27] MEDS: CLOPIDOGREL BISULFATE 75 MG TABLET PO SCH (08:17)
[2016-12-27 08:51] VITALS: BP 140/77
[2016-12-27] MEDS: AmLODIPine BESYLATE 5 MG TABLET PO SCH (09:59)
[2016-12-27 15:15] VITALS: BP 145/71
[2016-12-27 20:15] VITALS: BP 110/54
[2016-12-27] MEDS: MIRTAZAPINE 15 MG TABLET PO SCH (20:22)
[2016-12-27] MEDS: DOCUSATE SODIUM 283 MG/5 ML MINI-ENEMA PR PRN (20:22)
[2016-12-27] MEDS: SIMVASTATIN 20 MG TABLET PO SCH (20:22)
[2016-12-28 01:21] VITALS: BP 134/68
[2016-12-28] MEDS: LEVOTHYROXINE SODIUM 25 MCG TABLET PO SCH (06:14)
[2016-12-28 07:39] VITALS: BP 131/64
[2016-12-28] MEDS: DEXTROMETHORPHAN HBR/QUINIDINE 20/10 MG CAPSULE PO SCH ×2 (07:56→21:03)
[2016-12-28] MEDS: CLOPIDOGREL BISULFATE 75 MG TABLET PO SCH (07:56)
[2016-12-28] MEDS: ASCORBIC ACID 500 MG TABLET PO SCH (07:57)
[2016-12-28] MEDS: LACTOBACILLUS ACIDOPHILUS/BULGARICUS GRANULES PACKET PO SCH (07:57)
[2016-12-28] MEDS: DICLOFENAC SODIUM 1% 100 GM GEL [2GM] TP SCH ×2 (07:57→21:04)
[2016-12-28] MEDS: AmLODIPine BESYLATE 5 MG TABLET PO SCH (07:57)
[2016-12-28] MEDS: MULTIVITAMINS WITH MINERALS, THERAPEUTIC TABLET PO SCH (07:57)
[2016-12-28] MEDS: PANTOPRAZOLE SODIUM 40 MG DR TABLET PO SCH (07:57)
[2016-12-28 15:08] VITALS: BP 128/66
[2016-12-28] MEDS: SIMVASTATIN 20 MG TABLET PO SCH (21:03)
[2016-12-28] MEDS: MIRTAZAPINE 15 MG TABLET PO SCH (21:03)
[2016-12-28] MEDS: DOCUSATE SODIUM 283 MG/5 ML MINI-ENEMA PR PRN (21:04)
[2016-12-29 02:00] VITALS: BP 114/59
[2016-12-29] MEDS: LEVOTHYROXINE SODIUM 25 MCG TABLET PO SCH (06:20)
[2016-12-29 07:30] VITALS: BP 136/65
[2016-12-29] MEDS: MULTIVITAMINS WITH MINERALS, THERAPEUTIC TABLET PO SCH (07:57)
[2016-12-29] MEDS: DICLOFENAC SODIUM 1% 100 GM GEL [2GM] TP SCH ×2 (07:57→20:45)
[2016-12-29] MEDS: PANTOPRAZOLE SODIUM 40 MG DR TABLET PO SCH (07:57)
[2016-12-29] MEDS: ASCORBIC ACID 500 MG TABLET PO SCH (07:57)
[2016-12-29] MEDS: AmLODIPine BESYLATE 5 MG TABLET PO SCH (07:57)
[2016-12-29] MEDS: CLOPIDOGREL BISULFATE 75 MG TABLET PO SCH (07:57)
[2016-12-29] MEDS: LACTOBACILLUS ACIDOPHILUS/BULGARICUS GRANULES PACKET PO SCH (07:58)
[2016-12-29] MEDS: DEXTROMETHORPHAN HBR/QUINIDINE 20/10 MG CAPSULE PO SCH ×2 (07:58→20:44)
[2016-12-29 15:38] VITALS: BP 124/70
[2016-12-29] MEDS: MIRTAZAPINE 15 MG TABLET PO SCH (20:44)
[2016-12-29] MEDS: SIMVASTATIN 20 MG TABLET PO SCH (20:44)
[2016-12-30 00:53] VITALS: BP 125/64
[2016-12-30] MEDS: LEVOTHYROXINE SODIUM 25 MCG TABLET PO SCH (06:03)
[2016-12-30 07:30] VITALS: BP 120/69
[2016-12-30] MEDS: DEXTROMETHORPHAN HBR/QUINIDINE 20/10 MG CAPSULE PO SCH ×2 (08:06→21:17)
[2016-12-30] MEDS: AmLODIPine BESYLATE 5 MG TABLET PO SCH (08:07)
[2016-12-30] MEDS: ASCORBIC ACID 500 MG TABLET PO SCH (08:07)
[2016-12-30] MEDS: DICLOFENAC SODIUM 1% 100 GM GEL [2GM] TP SCH ×2 (08:07→21:17)
[2016-12-30] MEDS: MULTIVITAMINS WITH MINERALS, THERAPEUTIC TABLET PO SCH (08:07)
[2016-12-30] MEDS: LACTOBACILLUS ACIDOPHILUS/BULGARICUS GRANULES PACKET PO SCH (08:07)
[2016-12-30] MEDS: CLOPIDOGREL BISULFATE 75 MG TABLET PO SCH (08:07)
[2016-12-30] MEDS: PANTOPRAZOLE SODIUM 40 MG DR TABLET PO SCH (08:07)
[2016-12-30 15:20] VITALS: BP 136/74
[2016-12-30] MEDS: MIRTAZAPINE 15 MG TABLET PO SCH (21:17)
[2016-12-30] MEDS: SIMVASTATIN 20 MG TABLET PO SCH (21:17)
[2016-12-31 04:00] VITALS: BP 134/67
[2016-12-31] MEDS: LEVOTHYROXINE SODIUM 25 MCG TABLET PO SCH (05:59)
[2016-12-31 07:30] VITALS: BP 105/58
[2016-12-31 09:00] VITALS: BP 133/66
[2016-12-31] MEDS: LACTOBACILLUS ACIDOPHILUS/BULGARICUS GRANULES PACKET PO SCH (09:20)
[2016-12-31] MEDS: CLOPIDOGREL BISULFATE 75 MG TABLET PO SCH (09:20)
[2016-12-31] MEDS: PANTOPRAZOLE SODIUM 40 MG DR TABLET PO SCH (09:20)
[2016-12-31] MEDS: DICLOFENAC SODIUM 1% 100 GM GEL [2GM] TP SCH ×2 (09:20→21:01)
[2016-12-31] MEDS: MULTIVITAMINS WITH MINERALS, THERAPEUTIC TABLET PO SCH (09:20)
[2016-12-31] MEDS: DEXTROMETHORPHAN HBR/QUINIDINE 20/10 MG CAPSULE PO SCH ×2 (09:20→21:01)
[2016-12-31] MEDS: ASCORBIC ACID 500 MG TABLET PO SCH (09:21)
[2016-12-31] MEDS: AmLODIPine BESYLATE 5 MG TABLET PO SCH (09:26)
[2016-12-31 15:24] VITALS: BP 132/73
[2016-12-31] MEDS: MIRTAZAPINE 15 MG TABLET PO SCH (21:01)
[2016-12-31] MEDS: SIMVASTATIN 20 MG TABLET PO SCH (21:01)
[2017-01-01 01:03] VITALS: BP 123/65
[2017-01-01] MEDS: LEVOTHYROXINE SODIUM 25 MCG TABLET PO SCH (06:03)
[2017-01-01 07:30] VITALS: BP 124/68
[2017-01-01] MEDS: AmLODIPine BESYLATE 5 MG TABLET PO SCH (08:11)
[2017-01-01] MEDS: CLOPIDOGREL BISULFATE 75 MG TABLET PO SCH (08:11)
[2017-01-01] MEDS: LACTOBACILLUS ACIDOPHILUS/BULGARICUS GRANULES PACKET PO SCH (08:11)
[2017-01-01] MEDS: MULTIVITAMINS WITH MINERALS, THERAPEUTIC TABLET PO SCH (08:11)
[2017-01-01] MEDS: DEXTROMETHORPHAN HBR/QUINIDINE 20/10 MG CAPSULE PO SCH ×2 (08:11→21:02)
[2017-01-01] MEDS: PANTOPRAZOLE SODIUM 40 MG DR TABLET PO SCH (08:11)
[2017-01-01] MEDS: DICLOFENAC SODIUM 1% 100 GM GEL [2GM] TP SCH ×2 (08:11→21:02)
[2017-01-01] MEDS: ASCORBIC ACID 500 MG TABLET PO SCH (08:11)
[2017-01-01 15:13] VITALS: BP 127/63
[2017-01-01] MEDS: MIRTAZAPINE 15 MG TABLET PO SCH (21:01)
[2017-01-01] MEDS: SIMVASTATIN 20 MG TABLET PO SCH (21:01)
[2017-01-02 02:45] VITALS: BP 118/64
[2017-01-02] MEDS: LEVOTHYROXINE SODIUM 25 MCG TABLET PO SCH (06:25)
[2017-01-02 07:51] VITALS: BP 122/65
[2017-01-02] MEDS: PANTOPRAZOLE SODIUM 40 MG DR TABLET PO SCH (08:38)
[2017-01-02] MEDS: CLOPIDOGREL BISULFATE 75 MG TABLET PO SCH (08:38)
[2017-01-02] MEDS: LACTOBACILLUS ACIDOPHILUS/BULGARICUS GRANULES PACKET PO SCH (08:38)
[2017-01-02] MEDS: DICLOFENAC SODIUM 1% 100 GM GEL [2GM] TP SCH ×2 (08:38→21:13)
[2017-01-02] MEDS: ASCORBIC ACID 500 MG TABLET PO SCH (08:38)
[2017-01-02] MEDS: MULTIVITAMINS WITH MINERALS, THERAPEUTIC TABLET PO SCH (08:38)
[2017-01-02] MEDS: DEXTROMETHORPHAN HBR/QUINIDINE 20/10 MG CAPSULE PO SCH ×2 (08:38→21:12)
[2017-01-02] MEDS: AmLODIPine BESYLATE 5 MG TABLET PO SCH (08:38)
[2017-01-02 15:30] VITALS: BP 112/64
[2017-01-02] MEDS ORDERED: DICL2100G TP (20:52)
[2017-01-02] MEDS ORDERED: CLOP75 PO (20:52)
[2017-01-02] MEDS ORDERED: MIRT15 PO (20:52)
[2017-01-02] MEDS: MIRTAZAPINE 15 MG TABLET PO SCH (21:12)
[2017-01-02] MEDS: SIMVASTATIN 20 MG TABLET PO SCH (21:12)
[2017-01-03 05:46] VITALS: BP 116/66
[2017-01-03] MEDS: LEVOTHYROXINE SODIUM 25 MCG TABLET PO SCH (06:34)
[2017-01-03 08:03] VITALS: BP 140/63
[2017-01-03] MEDS: DICLOFENAC SODIUM 1% 100 GM GEL [2GM] TP SCH (08:10)
[2017-01-03] MEDS: AmLODIPine BESYLATE 5 MG TABLET PO SCH (08:10)
[2017-01-03] MEDS: PANTOPRAZOLE SODIUM 40 MG DR TABLET PO SCH (08:10)
[2017-01-03] MEDS: DEXTROMETHORPHAN HBR/QUINIDINE 20/10 MG CAPSULE PO SCH (08:10)
[2017-01-03] MEDS: MULTIVITAMINS WITH MINERALS, THERAPEUTIC TABLET PO SCH (08:10)
[2017-01-03] MEDS: LACTOBACILLUS ACIDOPHILUS/BULGARICUS GRANULES PACKET PO SCH (08:10)
[2017-01-03] MEDS: ASCORBIC ACID 500 MG TABLET PO SCH (08:10)
[2017-01-03] MEDS: CLOPIDOGREL BISULFATE 75 MG TABLET PO SCH (08:10)
[2017-02-12] MEDS ORDERED: KETO5DRO75 OP (11:06)
== END 2017-01-03 10:40 | disposition home health service (06) | DRG 56 ==
LOC: 2WR 12:45
PROVIDERS: ADMIT Physical Medicine & Rehabilitation; ATTEND Physical Medicine & Rehabilitation
DX: G81.91 Hemiplegia, unspecified affecting right dominant side (principal); I63.9 Cerebral infarction, unspecified; N39.0 Urinary tract infection, site not specified; R56.9 Unspecified convulsions; E78.5 Hyperlipidemia, unspecified; I10 Essential (primary) hypertension; R32 Unspecified urinary incontinence; Z79.899 Other long term (current) drug therapy; Z80.3 Family history of malignant neoplasm of breast; Z93.1 Gastrostomy status; I69.320 Aphasia following cerebral infarction; Z88.8 Allergy status to other drugs, medicaments and biological substances
CPT/HCPCS: 84439; 84443; 87081; 92507; 92523; 95816; 97110; 97112; 97116; 97163; 97167; 97530; 97535; 99366; J0696; J7050

== ENCOUNTER → 2017-02-12 | Outpatient (CLI) | payer MEDICARE, BC ==
[~2017-02-12] MED LIST changes: -ASPI81TA39 PO; -CEFT1PB IV; -CEFX1I IV; -CEFX2I IV; +CLOP75 PO; -DSS100 PO; -HYDR-309 PO; +KETO5DRO75 OP; -RISP0.252 PO
[2017-02-12 10:49] VITALS: BP 119/86
== END | disposition home or self-care (01) ==
LOC: SRCNTR 10:37
PROVIDERS: ATTEND Hospitalist
DX: I10 Essential (primary) hypertension (principal); R60.0 Localized edema; I82.403 Acute embolism and thrombosis of unspecified deep veins of lower extremity, bilateral; R32 Unspecified urinary incontinence; K45.8 Other specified abdominal hernia without obstruction or gangrene; F48.2 Pseudobulbar affect; R47.01 Aphasia
CPT/HCPCS: G0463

== ENCOUNTER → 2017-05-03 | Outpatient (CLI) | payer MEDICARE, BC ==
[2017-05-03 11:52] VITALS: BP 145/80
== END | disposition home or self-care (01) ==
LOC: SRCNTR 11:19
PROVIDERS: ATTEND Hospitalist
DX: E78.5 Hyperlipidemia, unspecified (principal); I10 Essential (primary) hypertension; E03.9 Hypothyroidism, unspecified
CPT/HCPCS: G0463

== ENCOUNTER → 2017-05-04 | Outpatient (CLI) | payer MEDICARE, BC ==
[2017-05-04 15:20] LABS: BASOPHILS % (AUTO) 0.9 % (0.0-2.0); EOSINOPHILS % (AUTO) 2.9 % (1.0-6.0); HEMATOCRIT 39.7 % (36-46); HEMOGLOBIN 13.2 g/dL (12.0-16.0); LYMPHOCYTES # (AUTO) 2.3 K/uL (1.0-4.8); LYMPHOCYTES % (AUTO) 29.6 % (22.0-44.0); MEAN CORPUSCULAR HEMOGLOBIN 28.8 pg (26.0-34.0); MEAN CORPUSCULAR HGB CONC 33.2 G/dL (31.0-37.0); MEAN CORPUSCULAR VOLUME 87 fL (80-100); MONOCYTES # (AUTO) 0.6 K/uL (0.1-1.0); MONOCYTES % (AUTO) 7.8 % (2.0-9.0); NEUTROPHILS # (AUTO) 4.5 K/uL (1.8-7.7); NEUTROPHILS % (AUTO) 58.8 % (40.0-70.0); PLATELET COUNT (AUTO) 188 K/uL (150-450); RED BLOOD CELL COUNT(AUTO) 4.58 MIL/uL (4.00-5.20)
[2017-05-04 20:59] LABS: ALANINE AMINOTRANSFERASE 19 U/L (12-78); ALBUMIN 3.7 g/dL (3.4-5.0); ALKALINE PHOSPHATASE 99 U/L (46-116); ANION GAP 6 mmol/L (8-16); ASPARTATE AMINOTRANSFERASE 25 U/L (15-37); BILIRUBIN,TOTAL 0.2 mg/dL (0.1-1.0); CARBON DIOXIDE 31 mmol/L (22-29); CHLORIDE 104 mmol/L (98-107); CREATININE 0.93 mg/dL (0.60-1.30); FREE T4 (FREE THYROXINE) 1.04 ng/dL (0.76-1.46); GLOMERULAR FILTR. RATE CALC > 60 mL/min (>60); GLUCOSE,RANDOM 101 mg/dL (70-110); POTASSIUM 3.8 mmol/L (3.5-5.1); SODIUM SERUM 141 mmol/L (136-145); THYROID STIMULATING HORMONE 2.54 uIU/mL (0.36-3.74); TOTAL PROTEIN, SERUM 7.5 g/dL (6.4-8.2); UREA NITROGEN, BLOOD 15 mg/dL (7-18)
== END | disposition home or self-care (01) ==
LOC: LABPV 14:06
PROVIDERS: ATTEND Hospitalist
DX: E03.9 Hypothyroidism, unspecified (principal)
CPT/HCPCS: 84439; 84443

== ENCOUNTER → 2017-07-16 | Outpatient (CLI) | payer MEDICARE, BC ==
[2017-07-16 11:57] VITALS: BP 114/65
== END | disposition home or self-care (01) ==
LOC: SRCNTR 11:42
PROVIDERS: ATTEND Hospitalist
DX: I10 Essential (primary) hypertension (principal); E78.5 Hyperlipidemia, unspecified; E03.9 Hypothyroidism, unspecified; R47.01 Aphasia; I82.409 Acute embolism and thrombosis of unspecified deep veins of unspecified lower extremity; R60.0 Localized edema; K46.9 Unspecified abdominal hernia without obstruction or gangrene
CPT/HCPCS: G0463

== ENCOUNTER → 2017-10-29 | Outpatient (CLI) | payer MEDICARE, BC | END | disposition home or self-care (01) | LOC: RADPV 14:19 | PROVIDERS: ATTEND Hospitalist | DX: R10.9 Unspecified abdominal pain (principal) | CPT/HCPCS: 74019 ==

== ENCOUNTER → 2017-11-23 | Outpatient (CLI) | payer MEDICARE, BC | END | disposition home or self-care (01) | LOC: RADMN 07:54 | PROVIDERS: ATTEND Hospitalist | DX: G93.89 Other specified disorders of brain (principal); I63.40 Cerebral infarction due to embolism of unspecified cerebral artery; I25.10 Atherosclerotic heart disease of native coronary artery without angina pectoris; E78.00 Pure hypercholesterolemia, unspecified; I10 Essential (primary) hypertension; F32.9 Major depressive disorder, single episode, unspecified | CPT/HCPCS: 70551 ==

== ENCOUNTER → 2017-12-13 | Outpatient (CLI) | payer MEDICARE, BC ==
[2017-12-13 11:10] VITALS: BP 133/59
== END | disposition home or self-care (01) ==
LOC: SRCNTR 10:31
PROVIDERS: ATTEND Hospitalist
DX: E03.9 Hypothyroidism, unspecified (principal); E78.5 Hyperlipidemia, unspecified; Z23 Encounter for immunization; I12.0 Hypertensive chronic kidney disease with stage 5 chronic kidney disease or end stage renal disease; N18.6 End stage renal disease; I82.409 Acute embolism and thrombosis of unspecified deep veins of unspecified lower extremity; R60.0 Localized edema; R47.01 Aphasia
CPT/HCPCS: 90471; 90686; G0463

== ENCOUNTER → 2017-12-14 | Outpatient (CLI) | payer MEDICARE, BC ==
[2017-12-14 10:27] LABS: BASOPHILS % (AUTO) 0.8 % (0.0-2.0); EOSINOPHILS % (AUTO) 2.9 % (1.0-6.0); HEMATOCRIT 41.5 % (36-46); HEMOGLOBIN 13.4 g/dL (12.0-16.0); LYMPHOCYTES # (AUTO) 1.8 K/uL (1.0-4.8); LYMPHOCYTES % (AUTO) 27.6 % (22.0-44.0); MEAN CORPUSCULAR HEMOGLOBIN 28.1 pg (26.0-34.0); MEAN CORPUSCULAR HGB CONC 32.2 G/dL (31.0-37.0); MEAN CORPUSCULAR VOLUME 87 fL (80-100); MONOCYTES # (AUTO) 0.5 K/uL (0.1-1.0); NEUTROPHILS # (AUTO) 3.9 K/uL (1.8-7.7); NEUTROPHILS % (AUTO) 60.7 % (40.0-70.0); PLATELET COUNT (AUTO) 248 K/uL (150-450); RED BLOOD CELL COUNT(AUTO) 4.75 MIL/uL (4.00-5.20); RED CELL DISTRIBUTION WIDTH 14.6 % (11.5-14.5)
[2017-12-14 10:28] LABS: HEMOGLOBIN A1C 5.5 % (4.5-6.2)
[2017-12-14 10:37] LABS: ALANINE AMINOTRANSFERASE 20 U/L (12-78); ALBUMIN 3.5 g/dL (3.4-5.0); ALKALINE PHOSPHATASE 92 U/L (46-116); ANION GAP 8 mmol/L (8-16); ASPARTATE AMINOTRANSFERASE 21 U/L (15-37); BILIRUBIN,TOTAL 0.2 mg/dL (0.1-1.0); CARBON DIOXIDE 29 mmol/L (22-29); CHLORIDE 104 mmol/L (98-107); CHOL/HDL RATIO 4.4 (3.9-5.7); CHOLESTEROL 176 mg/dL (131-200); CREATININE 0.95 mg/dL (0.60-1.30); FREE T4 (FREE THYROXINE) 1.05 ng/dL (0.76-1.46); GLUCOSE,RANDOM 99 mg/dL (70-110); HDL CHOLESTEROL 40 mg/dL (40-60); LDL CHOL (CALC.) 105 mg/dL (0-130); POTASSIUM 4.3 mmol/L (3.5-5.1); SODIUM SERUM 141 mmol/L (136-145); THYROID STIMULATING HORMONE 3.57 uIU/mL (0.36-3.74); TOTAL PROTEIN, SERUM 7.6 g/dL (6.4-8.2); TRIGLYCERIDES 155 mg/dL (15-150); UREA NITROGEN, BLOOD 14 mg/dL (7-18)
[2017-12-14 10:39] LABS: GLOMERULAR FILTR. RATE CALC > 60 mL/min (>60)
== END | disposition home or self-care (01) ==
LOC: LABPV 08:10
PROVIDERS: ATTEND Hospitalist
DX: E03.9 Hypothyroidism, unspecified (principal); I10 Essential (primary) hypertension; E78.00 Pure hypercholesterolemia, unspecified; I25.10 Atherosclerotic heart disease of native coronary artery without angina pectoris; Z79.899 Other long term (current) drug therapy
CPT/HCPCS: 82271; 83036; 84439; 84443

== ENCOUNTER → 2017-12-20 | Outpatient (CLI) | payer MEDICARE, BC | END | disposition home or self-care (01) | LOC: RADPV 09:33 | PROVIDERS: ATTEND Hospitalist | DX: E04.1 Nontoxic single thyroid nodule (principal); E03.9 Hypothyroidism, unspecified | CPT/HCPCS: 76536 ==

== ENCOUNTER → 2018-02-21 | Outpatient (CLI) | payer MEDICARE, BC ==
[~2018-02-21] MED LIST changes: +BENZ200C53 PO; +LEVO500 PO
[2018-02-21 10:03] VITALS: BP 116/77
== END | disposition home or self-care (01) ==
LOC: SRCNTR 09:47
PROVIDERS: ATTEND Hospitalist
DX: I10 Essential (primary) hypertension (principal); E03.9 Hypothyroidism, unspecified; I82.409 Acute embolism and thrombosis of unspecified deep veins of unspecified lower extremity; K46.9 Unspecified abdominal hernia without obstruction or gangrene; M19.90 Unspecified osteoarthritis, unspecified site; R60.0 Localized edema
CPT/HCPCS: G0463

== ENCOUNTER → 2018-03-28 | Outpatient (CLI) | payer MEDICARE, BC ==
[~2018-03-28] MED LIST changes: -CLOP75 PO
[2018-03-28 11:41] VITALS: BP 136/60
== END | disposition home or self-care (01) ==
LOC: SRCNTR 11:29
PROVIDERS: ATTEND Hospitalist
DX: I10 Essential (primary) hypertension (principal); E03.9 Hypothyroidism, unspecified; K46.9 Unspecified abdominal hernia without obstruction or gangrene; I82.403 Acute embolism and thrombosis of unspecified deep veins of lower extremity, bilateral; I61.9 Nontraumatic intracerebral hemorrhage, unspecified; E78.5 Hyperlipidemia, unspecified; M19.90 Unspecified osteoarthritis, unspecified site; R60.0 Localized edema; R47.01 Aphasia; R58 Hemorrhage, not elsewhere classified
CPT/HCPCS: G0463

== ENCOUNTER → 2018-06-13 | Outpatient (CLI) | payer MEDICARE, BC ==
[2018-06-13 10:45] VITALS: BP 121/62
== END | disposition home or self-care (01) ==
LOC: SRCNTR 10:40
PROVIDERS: ATTEND Hospitalist
DX: E78.5 Hyperlipidemia, unspecified (principal); E03.9 Hypothyroidism, unspecified; I10 Essential (primary) hypertension
CPT/HCPCS: G0463

== ENCOUNTER → 2019-01-27 | Outpatient (CLI) | payer MEDICARE, BC ==
[~2019-01-27] MED LIST changes: -AMLO-511 PO; +AMLO5TAB9 PO; +ASCO500 PO; -BENZ200C53 PO; +CLOP75TA32 PO; -DICL2100G TP; +DOCU-275 PO; -KETO5DRO75 OP; -LACT1TAB11 PO; +LEVE500T53 PO; -LEVO500 PO; +MULT-1239 PO; +SENN-106 PO; +SULF1TAB42 PO; +ZINC1CAP2 PO
[2019-01-27 12:25] LABS: FREE T4 (FREE THYROXINE) 1.04 ng/dL (0.76-1.46); THYROID STIMULATING HORMONE 3.07 uIU/mL (0.36-3.74)
== END | disposition home or self-care (01) ==
LOC: MSR 10:29
PROVIDERS: ATTEND Hospitalist
DX: E04.1 Nontoxic single thyroid nodule (principal)
CPT/HCPCS: 76536; 84439; 84443

== ENCOUNTER 2019-01-28 08:28 | Inpatient (IN) | payer MEDICARE, BC ==
[~2019-01-28] VITALS: Ht 154.9 cm; Wt 81.0 kg
[~2019-01-28 08:28] MED LIST changes: -ASCO500 PO; -DOCU-275 PO; -LEVE500T53 PO; -MULT-1239 PO; -SENN-106 PO; -SULF1TAB42 PO; -ZINC1CAP2 PO
[2019-01-28 10:00] LABS: ANION GAP 6 mmol/L (8-16); CALCIUM, TOTAL 8.9 mg/dL (8.8-10.5); CARBON DIOXIDE 32 mmol/L (22-29); CHLORIDE 105 mmol/L (98-107); CREATININE 0.93 mg/dL (0.60-1.30); GLOMERULAR FILTR. RATE CALC > 60 mL/min (>60); GLUCOSE,RANDOM 105 mg/dL (70-110); POTASSIUM 4.1 mmol/L (3.5-5.1); SODIUM SERUM 143 mmol/L (136-145); UREA NITROGEN, BLOOD 13 mg/dL (7-18)
[2019-01-28 10:01] LABS: BASOPHILS % (AUTO) 0.9 % (0.0-2.0); EOSINOPHILS % (AUTO) 2.8 % (1.0-6.0); HEMATOCRIT 40.4 % (36-46); HEMOGLOBIN 13.2 g/dL (12.0-16.0); LYMPHOCYTES # (AUTO) 2.1 K/uL (1.0-4.8); LYMPHOCYTES % (AUTO) 28.8 % (22.0-44.0); MEAN CORPUSCULAR HEMOGLOBIN 28.5 pg (26.0-34.0); MEAN CORPUSCULAR HGB CONC 32.7 G/dL (31.0-37.0); MEAN CORPUSCULAR VOLUME 87 fL (80-100); MONOCYTES # (AUTO) 0.6 K/uL (0.1-1.0); MONOCYTES % (AUTO) 8.8 % (2.0-9.0); NEUTROPHILS # (AUTO) 4.3 K/uL (1.8-7.7); NEUTROPHILS % (AUTO) 58.7 % (40.0-70.0); PLATELET COUNT (AUTO) 195 K/uL (150-450); RED BLOOD CELL COUNT(AUTO) 4.64 MIL/uL (4.00-5.20); RED CELL DISTRIBUTION WIDTH 14.5 % (11.5-14.5)
[2019-01-28] MEDS ORDERED: SENN-106 PO (10:10)
[2019-01-28 10:17] LABS: ALANINE AMINOTRANSFERASE 24 U/L (12-78); ALBUMIN 3.5 g/dL (3.4-5.0); ALKALINE PHOSPHATASE 83 U/L (46-116); ASPARTATE AMINOTRANSFERASE 21 U/L (15-37); BILIRUBIN,TOTAL 0.3 mg/dL (0.1-1.0); LIPASE 59 U/L (73-393); THYROID STIMULATING HORMONE 3.23 uIU/mL (0.36-3.74); TOTAL PROTEIN, SERUM 7.4 g/dL (6.4-8.2)
[2019-01-28 10:22] LABS: PROTHROMBIN TIME 9.9 SEC (9.4-11.6)
[2019-01-28 11:08] LABS: APPEARANCE,URINE CLEAR (CLEAR); BILIRUBIN,URINE NEGATIVE (NEGATIVE); GLUCOSE, URINE (UA) NEGATIVE (NEGATIVE); KETONES,URINE NEGATIVE (NEGATIVE); LEUKOCYTE ESTERASE ,URINE NEGATIVE (NEGATIVE); NITRATE,URINE NEGATIVE (NEGATIVE); OCCULT BLOOD,URINE MODERATE (NEGATIVE); PROTEIN,URINE NEGATIVE (NEGATIVE); UROBILINOGEN,URINE 0.2 mg/dL (<=1.0)
[2019-01-28 11:13] LABS: BACTERIA,URINE None Seen /HPF (None Seen); WBC,URINE 0-2 /HPF (0-5)
[2019-01-28] MEDS ORDERED: MULT-29 PO (11:37)
[2019-01-28] MEDS ORDERED: IPRATROPIUM BROMIDE 0.5 MG/2.5 ML NEB SOLUTION NEB PRN (11:45)
[2019-01-28] MEDS ORDERED: BISACODYL 10 MG RECTAL RECTAL SUPPOSITORY PR PRN (11:45)
[2019-01-28] MEDS ORDERED: MAGNESIUM HYDROXIDE SUSPENSION 30 ML UDCUP PO PRN (11:45)
[2019-01-28] MEDS ORDERED: ONDANSETRON HCL 4 MG/2 ML VIAL IVP PRN ×2 (11:45)
[2019-01-28] MEDS ORDERED: ZOLPIDEM TARTRATE 5 MG TABLET PO PRN (11:45)
[2019-01-28] MEDS ORDERED: HYDROCODONE/ACETAMINOPHEN 5-325 MG TABLET PO PRN (11:45)
[2019-01-28] MEDS ORDERED: ALBUTEROL SULFATE 2.5 MG/0.5 ML NEB SOLUTION NEB PRN (11:45)
[2019-01-28] MEDS ORDERED: MORPHINE SULFATE 2 MG/ML SYRINGE IVP PRN (11:45)
[2019-01-28] MEDS ORDERED: 0.9% SODIUM CHLORIDE 10 ML SYRINGE IVP PRN (11:45)
[2019-01-28] MEDS ORDERED: ACETAMINOPHEN 325 MG TABLET PO PRN ×2 (11:45)
[2019-01-28 11:50] VITALS: BP 129/72
[2019-01-28] MEDS ORDERED: PNEUMOCOCCAL VACCINE POLYVALENT 0.5 ML VIAL [PPSV23] IM ONE (13:30)
[2019-01-28 16:00] VITALS: BP 128/70
[2019-01-28] MEDS ORDERED: LORazepam 2 MG/ML VIAL IVP ONE (19:30)
[2019-01-28] MEDS ORDERED: LORazepam 2 MG/ML VIAL ONE (19:36)
[2019-01-28 19:40] VITALS: BP 127/75
[2019-01-28] MEDS: SENNA/DOCUSATE SODIUM 8.6-50 MG TABLET PO SCH (21:00)
[2019-01-28] MEDS: MIRTAZAPINE 15 MG TABLET PO SCH (21:00)
[2019-01-28] MEDS: SIMVASTATIN 20 MG TABLET PO SCH (21:00)
[2019-01-28] MEDS ORDERED: SODIUM CHLORIDE 0.9% 250 ML IV ONE (22:11)
[2019-01-28] MEDS: LevETIRAcetam 500 MG in DEXTROSE 5%-WATER 100 ML IV SCH (22:23)
[2019-01-28 23:33] VITALS: BP 118/64
[2019-01-29] VITALS (7 sets, daily range): BP systolic 115–132; BP diastolic 57–71
[2019-01-29] MEDS: LEVOTHYROXINE SODIUM 25 MCG TABLET PO SCH (05:38)
[2019-01-29 08:02] LABS: BASOPHILS % (AUTO) 0.8 % (0.0-2.0); EOSINOPHILS % (AUTO) 1.2 % (1.0-6.0); HEMATOCRIT 38.1 % (36-46); HEMOGLOBIN 12.4 g/dL (12.0-16.0); LYMPHOCYTES # (AUTO) 2.1 K/uL (1.0-4.8); LYMPHOCYTES % (AUTO) 21.1 % (22.0-44.0); MEAN CORPUSCULAR HEMOGLOBIN 28.3 pg (26.0-34.0); MEAN CORPUSCULAR HGB CONC 32.6 G/dL (31.0-37.0); MEAN CORPUSCULAR VOLUME 87 fL (80-100); MONOCYTES # (AUTO) 0.7 K/uL (0.1-1.0); MONOCYTES % (AUTO) 7.5 % (2.0-9.0); NEUTROPHILS # (AUTO) 6.8 K/uL (1.8-7.7); NEUTROPHILS % (AUTO) 69.4 % (40.0-70.0); PLATELET COUNT (AUTO) 195 K/uL (150-450); RED CELL DISTRIBUTION WIDTH 14.2 % (11.5-14.5)
[2019-01-29 08:11] LABS: ANION GAP 7 mmol/L (8-16); CALCIUM, TOTAL 8.6 mg/dL (8.8-10.5); CARBON DIOXIDE 29 mmol/L (22-29); CHLORIDE 103 mmol/L (98-107); CREATININE 0.84 mg/dL (0.60-1.30); GLUCOSE,RANDOM 113 mg/dL (70-110); POTASSIUM 4.1 mmol/L (3.5-5.1); SODIUM SERUM 139 mmol/L (136-145); UREA NITROGEN, BLOOD 11 mg/dL (7-18)
[2019-01-29 08:25] LABS: GLOMERULAR FILTR. RATE CALC > 60 mL/min (>60)
[2019-01-29 08:28] LABS: ALANINE AMINOTRANSFERASE 23 U/L (12-78); ALBUMIN 3.3 g/dL (3.4-5.0); ALKALINE PHOSPHATASE 77 U/L (46-116); ASPARTATE AMINOTRANSFERASE 19 U/L (15-37); BILIRUBIN,TOTAL 0.4 mg/dL (0.1-1.0); TOTAL PROTEIN, SERUM 7.3 g/dL (6.4-8.2)
[2019-01-29] MEDS: CLOPIDOGREL BISULFATE 75 MG TABLET PO SCH (09:59)
[2019-01-29] MEDS: SENNA/DOCUSATE SODIUM 8.6-50 MG TABLET PO SCH ×2 (09:59→20:58)
[2019-01-29] MEDS: AmLODIPine BESYLATE 5 MG TABLET PO SCH (09:59)
[2019-01-29] MEDS: LevETIRAcetam 500 MG in DEXTROSE 5%-WATER 100 ML IV SCH ×2 (09:59→20:58)
[2019-01-29] MEDS: PANTOPRAZOLE SODIUM 40 MG DR TABLET PO SCH (09:59)
[2019-01-29] MEDS: SIMVASTATIN 20 MG TABLET PO SCH (20:58)
[2019-01-29] MEDS: MIRTAZAPINE 15 MG TABLET PO SCH (20:58)
[2019-01-29] MEDS: HEPARIN SODIUM,PORCINE 5,000 UNITS/ML VIAL SQ SCH (20:58)
[2019-01-30 00:27] VITALS: BP 142/71
[2019-01-30 05:13] VITALS: BP 118/69
[2019-01-30] MEDS: LEVOTHYROXINE SODIUM 25 MCG TABLET PO SCH (05:29)
[2019-01-30 07:23] LABS: CHOL/HDL RATIO 4.5 (3.9-5.7)
[2019-01-30 08:44] VITALS: BP 117/65
[2019-01-30] MEDS: HEPARIN SODIUM,PORCINE 5,000 UNITS/ML VIAL SQ SCH (08:49)
[2019-01-30] MEDS: CLOPIDOGREL BISULFATE 75 MG TABLET PO SCH (08:49)
[2019-01-30] MEDS: SENNA/DOCUSATE SODIUM 8.6-50 MG TABLET PO SCH (08:49)
[2019-01-30] MEDS: AmLODIPine BESYLATE 5 MG TABLET PO SCH (08:49)
[2019-01-30] MEDS: PANTOPRAZOLE SODIUM 40 MG DR TABLET PO SCH (08:49)
[2019-01-30] MEDS: LevETIRAcetam 500 MG in DEXTROSE 5%-WATER 100 ML IV SCH (08:51)
[2019-01-30] MEDS ORDERED: DEXTROMETHORPHAN HBR/QUINIDINE 20/10 MG CAPSULE PO SCH (09:00)
[2019-01-30] MEDS ORDERED: LEVE500T53 PO (10:26)
== END 2019-01-30 14:50 | DRG 101 ==
LOC: EMS 08:30 → 5S 10:27
PROVIDERS: ADMIT Hospitalist; ATTEND Hospitalist
DX: R56.9 Unspecified convulsions (principal); I82.503 Chronic embolism and thrombosis of unspecified deep veins of lower extremity, bilateral; I10 Essential (primary) hypertension; E03.9 Hypothyroidism, unspecified; Z91.048 Other nonmedicinal substance allergy status; Z86.73 Personal history of transient ischemic attack (TIA), and cerebral infarction without residual deficits
CPT/HCPCS: 70551; 76536; 83605; 84439; 84443; 87040; 92610; 93005; 93306; 93880; 93970; 95816; 96374; 97163; 97166; 97530; 97535; 99291; J0712; J1644; J2060; J7050; J7060

== ENCOUNTER 2019-01-30 14:45 | Inpatient (IN) | payer MEDICARE, BC ==
[~2019-01-30] VITALS: Ht 154.9 cm; Wt 87.1 kg
[~2019-01-30 14:45] MED LIST changes: +LEVE500T53 PO; +SENN-106 PO
[2019-01-30 15:00] VITALS: BP 133/74
[2019-01-30] MEDS ORDERED: IPRATROPIUM BROMIDE 0.5 MG/2.5 ML NEB SOLUTION NEB PRN (20:30)
[2019-01-30] MEDS ORDERED: ACETAMINOPHEN 325 MG TABLET PO PRN (20:30)
[2019-01-30] MEDS ORDERED: ALBUTEROL SULFATE 2.5 MG/0.5 ML NEB SOLUTION NEB PRN (20:30)
[2019-01-30] MEDS ORDERED: ONDANSETRON HCL 4 MG TABLET PO PRN (20:30)
[2019-01-30] MEDS ORDERED: MAGNESIUM HYDROXIDE SUSPENSION 30 ML UDCUP PO PRN (20:30)
[2019-01-30] MEDS ORDERED: HYDROCODONE/ACETAMINOPHEN 5-325 MG TABLET PO PRN ×2 (20:30)
[2019-01-31] MEDS: SENNA/DOCUSATE SODIUM 8.6-50 MG TABLET PO SCH ×3 (00:45→22:01)
[2019-01-31] MEDS: SIMVASTATIN 20 MG TABLET PO SCH ×2 (00:45→22:01)
[2019-01-31] MEDS: LevETIRAcetam 500 MG TABLET PO SCH ×3 (00:45→22:01)
[2019-01-31] MEDS: 0.9% SODIUM CHLORIDE 10 ML SYRINGE IVP SCH ×2 (00:45→08:17)
[2019-01-31 01:43] VITALS: BP 117/65
[2019-01-31] MEDS: LEVOTHYROXINE SODIUM 25 MCG TABLET PO SCH (05:45)
[2019-01-31 06:24] LABS: BASOPHILS % (AUTO) 0.3 % (0.0-2.0); EOSINOPHILS % (AUTO) 3.2 % (1.0-6.0); LYMPHOCYTES # (AUTO) 2.1 K/uL (1.0-4.8); LYMPHOCYTES % (AUTO) 28.3 % (22.0-44.0); MEAN CORPUSCULAR HEMOGLOBIN 29.1 pg (26.0-34.0); MEAN CORPUSCULAR HGB CONC 33.5 G/dL (31.0-37.0); MEAN CORPUSCULAR VOLUME 87 fL (80-100); MONOCYTES # (AUTO) 0.7 K/uL (0.1-1.0); MONOCYTES % (AUTO) 9.8 % (2.0-9.0); NEUTROPHILS # (AUTO) 4.4 K/uL (1.8-7.7); NEUTROPHILS % (AUTO) 58.4 % (40.0-70.0); PLATELET COUNT (AUTO) 181 K/uL (150-450); RED BLOOD CELL COUNT(AUTO) 4.13 MIL/uL (4.00-5.20); RED CELL DISTRIBUTION WIDTH 14.5 % (11.5-14.5)
[2019-01-31 06:41] LABS: ALANINE AMINOTRANSFERASE 21 U/L (12-78); ALBUMIN 3.1 g/dL (3.4-5.0); ALKALINE PHOSPHATASE 74 U/L (46-116); ANION GAP 7 mmol/L (8-16); ASPARTATE AMINOTRANSFERASE 15 U/L (15-37); BILIRUBIN,TOTAL 0.3 mg/dL (0.1-1.0); CALCIUM, TOTAL 8.8 mg/dL (8.8-10.5); CARBON DIOXIDE 30 mmol/L (22-29); CHLORIDE 104 mmol/L (98-107); CREATININE 0.97 mg/dL (0.60-1.30); GLUCOSE,RANDOM 112 mg/dL (70-110); POTASSIUM 3.8 mmol/L (3.5-5.1); SODIUM SERUM 141 mmol/L (136-145); TOTAL PROTEIN, SERUM 6.8 g/dL (6.4-8.2); UREA NITROGEN, BLOOD 16 mg/dL (7-18)
[2019-01-31 06:42] LABS: GLOMERULAR FILTR. RATE CALC > 60 mL/min (>60)
[2019-01-31] MEDS: PANTOPRAZOLE SODIUM 40 MG DR TABLET PO SCH (08:16)
[2019-01-31] MEDS: CLOPIDOGREL BISULFATE 75 MG TABLET PO SCH (08:16)
[2019-01-31 08:47] VITALS: BP 110/55
[2019-01-31] MEDS ORDERED: MULTIVITAMINS WITH MINERALS, THERAPEUTIC TABLET PO SCH (09:00)
[2019-01-31] MEDS: DOCUSATE SODIUM 100 MG CAPSULE PO SCH (12:38)
[2019-01-31] MEDS: HEPARIN SODIUM,PORCINE 5,000 UNITS/ML VIAL SQ SCH ×2 (12:38→22:01)
[2019-01-31 15:00] VITALS: BP 132/63
[2019-02-01 04:50] VITALS: BP 117/62
[2019-02-01] MEDS: LEVOTHYROXINE SODIUM 25 MCG TABLET PO SCH (06:22)
[2019-02-01 07:35] VITALS: BP_SYST 109; BP_SYST 132; BP_DIAS 59; BP_DIAS 63
[2019-02-01] MEDS: DOCUSATE SODIUM 100 MG CAPSULE PO SCH (09:27)
[2019-02-01] MEDS: MULTIVITAMINS WITH MINERALS, THERAPEUTIC TABLET PO SCH (09:27)
[2019-02-01] MEDS: PANTOPRAZOLE SODIUM 40 MG DR TABLET PO SCH (09:27)
[2019-02-01] MEDS: CLOPIDOGREL BISULFATE 75 MG TABLET PO SCH (09:28)
[2019-02-01] MEDS: SENNA/DOCUSATE SODIUM 8.6-50 MG TABLET PO SCH ×2 (09:28→21:06)
[2019-02-01] MEDS: DEXTROMETHORPHAN HBR/QUINIDINE 20/10 MG CAPSULE PO SCH (09:28)
[2019-02-01] MEDS: HEPARIN SODIUM,PORCINE 5,000 UNITS/ML VIAL SQ SCH ×2 (09:28→21:06)
[2019-02-01] MEDS: LevETIRAcetam 500 MG TABLET PO SCH ×2 (09:29→21:06)
[2019-02-01 15:30] VITALS: BP 126/68
[2019-02-01] MEDS: SIMVASTATIN 20 MG TABLET PO SCH (21:06)
[2019-02-02 05:12] VITALS: BP 120/57
[2019-02-02] MEDS: LEVOTHYROXINE SODIUM 25 MCG TABLET PO SCH (05:58)
[2019-02-02 08:01] VITALS: BP 119/66
[2019-02-02] MEDS: LevETIRAcetam 500 MG TABLET PO SCH ×2 (08:43→21:23)
[2019-02-02] MEDS: MULTIVITAMINS WITH MINERALS, THERAPEUTIC TABLET PO SCH (08:43)
[2019-02-02] MEDS: DOCUSATE SODIUM 100 MG CAPSULE PO SCH (08:43)
[2019-02-02] MEDS: CLOPIDOGREL BISULFATE 75 MG TABLET PO SCH (08:44)
[2019-02-02] MEDS: HEPARIN SODIUM,PORCINE 5,000 UNITS/ML VIAL SQ SCH ×2 (08:44→21:24)
[2019-02-02] MEDS: PANTOPRAZOLE SODIUM 40 MG DR TABLET PO SCH (08:44)
[2019-02-02] MEDS: SENNA/DOCUSATE SODIUM 8.6-50 MG TABLET PO SCH ×2 (08:45→21:24)
[2019-02-02 15:38] VITALS: BP 134/77
[2019-02-02] MEDS: BISACODYL 10 MG RECTAL RECTAL SUPPOSITORY PR PRN (19:05)
[2019-02-02] MEDS: SIMVASTATIN 20 MG TABLET PO SCH (21:24)
[2019-02-03 01:15] VITALS: BP 115/61
[2019-02-03] MEDS: LEVOTHYROXINE SODIUM 25 MCG TABLET PO SCH (06:39)
[2019-02-03 07:50] VITALS: BP 112/68
[2019-02-03] MEDS: MULTIVITAMINS WITH MINERALS, THERAPEUTIC TABLET PO SCH (08:13)
[2019-02-03] MEDS: CLOPIDOGREL BISULFATE 75 MG TABLET PO SCH (08:13)
[2019-02-03] MEDS: LevETIRAcetam 500 MG TABLET PO SCH ×2 (08:13→21:48)
[2019-02-03] MEDS: HEPARIN SODIUM,PORCINE 5,000 UNITS/ML VIAL SQ SCH ×2 (08:13→21:48)
[2019-02-03] MEDS: PANTOPRAZOLE SODIUM 40 MG DR TABLET PO SCH (08:13)
[2019-02-03] MEDS: DOCUSATE SODIUM 100 MG CAPSULE PO SCH (08:13)
[2019-02-03] MEDS: SENNA/DOCUSATE SODIUM 8.6-50 MG TABLET PO SCH ×2 (08:14→21:48)
[2019-02-03] MEDS: DEXTROMETHORPHAN HBR/QUINIDINE 20/10 MG CAPSULE PO SCH (08:14)
[2019-02-03 15:57] VITALS: BP 125/77
[2019-02-03] MEDS: SIMVASTATIN 20 MG TABLET PO SCH (21:48)
[2019-02-04] VITALS: BP 111/56
[2019-02-04] MEDS: LEVOTHYROXINE SODIUM 25 MCG TABLET PO SCH (05:36)
[2019-02-04] MEDS: DEXTROMETHORPHAN HBR/QUINIDINE 20/10 MG CAPSULE PO SCH (08:31)
[2019-02-04] MEDS: LevETIRAcetam 500 MG TABLET PO SCH ×2 (08:31→20:01)
[2019-02-04] MEDS: DOCUSATE SODIUM 100 MG CAPSULE PO SCH (08:31)
[2019-02-04] MEDS: PANTOPRAZOLE SODIUM 40 MG DR TABLET PO SCH (08:31)
[2019-02-04] MEDS: SENNA/DOCUSATE SODIUM 8.6-50 MG TABLET PO SCH ×2 (08:31→20:01)
[2019-02-04] MEDS: CLOPIDOGREL BISULFATE 75 MG TABLET PO SCH (08:31)
[2019-02-04] MEDS: MULTIVITAMINS WITH MINERALS, THERAPEUTIC TABLET PO SCH (08:31)
[2019-02-04] MEDS: HEPARIN SODIUM,PORCINE 5,000 UNITS/ML VIAL SQ SCH ×2 (08:32→20:01)
[2019-02-04 09:00] VITALS: BP 116/70
[2019-02-04 18:49] VITALS: BP 130/75
[2019-02-04] MEDS: SIMVASTATIN 20 MG TABLET PO SCH (20:01)
[2019-02-05 00:04] VITALS: BP 115/62
[2019-02-05] MEDS: LEVOTHYROXINE SODIUM 25 MCG TABLET PO SCH (06:02)
[2019-02-05] MEDS: BISACODYL 10 MG RECTAL RECTAL SUPPOSITORY PR PRN (08:28)
[2019-02-05 09:04] VITALS: BP 110/60
[2019-02-05] MEDS: DOCUSATE SODIUM 100 MG CAPSULE PO SCH (10:02)
[2019-02-05] MEDS: HEPARIN SODIUM,PORCINE 5,000 UNITS/ML VIAL SQ SCH ×2 (10:02→20:15)
[2019-02-05] MEDS: LevETIRAcetam 500 MG TABLET PO SCH ×2 (10:03→20:14)
[2019-02-05] MEDS: CLOPIDOGREL BISULFATE 75 MG TABLET PO SCH (10:03)
[2019-02-05] MEDS: MULTIVITAMINS WITH MINERALS, THERAPEUTIC TABLET PO SCH (10:03)
[2019-02-05] MEDS: SENNA/DOCUSATE SODIUM 8.6-50 MG TABLET PO SCH ×2 (10:03→20:14)
[2019-02-05] MEDS: PANTOPRAZOLE SODIUM 40 MG DR TABLET PO SCH (10:03)
[2019-02-05] MEDS: DEXTROMETHORPHAN HBR/QUINIDINE 20/10 MG CAPSULE PO SCH (10:03)
[2019-02-05 16:18] VITALS: BP 110/58
[2019-02-05] MEDS: SIMVASTATIN 20 MG TABLET PO SCH (20:14)
[2019-02-06 00:23] VITALS: BP 109/60
[2019-02-06 00:40] LABS: APPEARANCE,URINE CLOUDY (CLEAR); BILIRUBIN,URINE NEGATIVE (NEGATIVE); GLUCOSE, URINE (UA) NEGATIVE (NEGATIVE); KETONES,URINE NEGATIVE (NEGATIVE); LEUKOCYTE ESTERASE ,URINE SMALL (NEGATIVE); NITRATE,URINE POSITIVE (NEGATIVE); OCCULT BLOOD,URINE TRACE (NEGATIVE); PROTEIN,URINE NEGATIVE (NEGATIVE); UROBILINOGEN,URINE 0.2 mg/dL (<=1.0)
[2019-02-06 00:49] LABS: BACTERIA,URINE Many /HPF (None Seen); RBC,URINE 0-2 /HPF (0-2); SQUAMOUS EPITHELIAL CELL,UR Many /LPF (None Seen)
[2019-02-06] MEDS: LEVOTHYROXINE SODIUM 25 MCG TABLET PO SCH (06:06)
[2019-02-06 07:45] VITALS: BP 108/59
[2019-02-06] MEDS: CLOPIDOGREL BISULFATE 75 MG TABLET PO SCH (08:09)
[2019-02-06] MEDS: MULTIVITAMINS WITH MINERALS, THERAPEUTIC TABLET PO SCH (08:10)
[2019-02-06] MEDS: DEXTROMETHORPHAN HBR/QUINIDINE 20/10 MG CAPSULE PO SCH (08:10)
[2019-02-06] MEDS: PANTOPRAZOLE SODIUM 40 MG DR TABLET PO SCH (08:10)
[2019-02-06] MEDS: DOCUSATE SODIUM 100 MG CAPSULE PO SCH (08:10)
[2019-02-06] MEDS: SENNA/DOCUSATE SODIUM 8.6-50 MG TABLET PO SCH ×2 (08:10→20:13)
[2019-02-06] MEDS: LevETIRAcetam 500 MG TABLET PO SCH ×2 (08:12→20:13)
[2019-02-06] MEDS: HEPARIN SODIUM,PORCINE 5,000 UNITS/ML VIAL SQ SCH ×2 (08:12→20:14)
[2019-02-06 18:45] VITALS: BP 120/74
[2019-02-06] MEDS: SIMVASTATIN 20 MG TABLET PO SCH (20:13)
[2019-02-07] VITALS: BP 112/59
[2019-02-07] MEDS: LEVOTHYROXINE SODIUM 25 MCG TABLET PO SCH (05:59)
[2019-02-07] MEDS: SENNA/DOCUSATE SODIUM 8.6-50 MG TABLET PO SCH ×3 (09:00→21:00)
[2019-02-07] MEDS: DOCUSATE SODIUM 100 MG CAPSULE PO SCH (09:22)
[2019-02-07] MEDS: PANTOPRAZOLE SODIUM 40 MG DR TABLET PO SCH (09:22)
[2019-02-07] MEDS: MULTIVITAMINS WITH MINERALS, THERAPEUTIC TABLET PO SCH (09:22)
[2019-02-07] MEDS: DEXTROMETHORPHAN HBR/QUINIDINE 20/10 MG CAPSULE PO SCH (09:22)
[2019-02-07] MEDS: LevETIRAcetam 500 MG TABLET PO SCH ×2 (09:22→21:33)
[2019-02-07] MEDS: CLOPIDOGREL BISULFATE 75 MG TABLET PO SCH (09:22)
[2019-02-07] MEDS: HEPARIN SODIUM,PORCINE 5,000 UNITS/ML VIAL SQ SCH ×2 (09:24→21:33)
[2019-02-07 09:38] VITALS: BP 119/70
[2019-02-07] MEDS: ASCORBIC ACID 500 MG TABLET PO SCH (12:37)
[2019-02-07] MEDS: ZINC SULFATE 220 MG CAPSULE PO SCH (12:37)
[2019-02-07 16:31] VITALS: BP 135/70
[2019-02-07] MEDS: SIMVASTATIN 20 MG TABLET PO SCH (21:33)
[2019-02-08 00:17] VITALS: BP 118/64
[2019-02-08] MEDS: LEVOTHYROXINE SODIUM 25 MCG TABLET PO SCH (05:56)
[2019-02-08] MEDS: PANTOPRAZOLE SODIUM 40 MG DR TABLET PO SCH (07:19)
[2019-02-08] MEDS: ASCORBIC ACID 500 MG TABLET PO SCH (07:19)
[2019-02-08] MEDS: CLOPIDOGREL BISULFATE 75 MG TABLET PO SCH (07:19)
[2019-02-08] MEDS: MULTIVITAMINS WITH MINERALS, THERAPEUTIC TABLET PO SCH (07:19)
[2019-02-08] MEDS: LevETIRAcetam 500 MG TABLET PO SCH ×2 (07:19→20:07)
[2019-02-08] MEDS: DEXTROMETHORPHAN HBR/QUINIDINE 20/10 MG CAPSULE PO SCH (07:19)
[2019-02-08] MEDS: ZINC SULFATE 220 MG CAPSULE PO SCH (07:19)
[2019-02-08] MEDS: SENNA/DOCUSATE SODIUM 8.6-50 MG TABLET PO SCH ×3 (07:20→20:08)
[2019-02-08] MEDS: HEPARIN SODIUM,PORCINE 5,000 UNITS/ML VIAL SQ SCH ×2 (07:20→20:07)
[2019-02-08] MEDS: DOCUSATE SODIUM 100 MG CAPSULE PO SCH (07:20)
[2019-02-08 08:10] VITALS: BP 121/64
[2019-02-08 16:27] VITALS: BP 113/77
[2019-02-08] MEDS: SIMVASTATIN 20 MG TABLET PO SCH (20:07)
[2019-02-09 00:42] VITALS: BP 90/60
[2019-02-09] MEDS: LEVOTHYROXINE SODIUM 25 MCG TABLET PO SCH (06:17)
[2019-02-09 08:00] VITALS: BP 118/70
[2019-02-09] MEDS: SENNA/DOCUSATE SODIUM 8.6-50 MG TABLET PO SCH ×2 (09:00→20:39)
[2019-02-09] MEDS: DOCUSATE SODIUM 100 MG CAPSULE PO SCH (09:00)
[2019-02-09] MEDS: PANTOPRAZOLE SODIUM 40 MG DR TABLET PO SCH (09:52)
[2019-02-09] MEDS: MULTIVITAMINS WITH MINERALS, THERAPEUTIC TABLET PO SCH (09:52)
[2019-02-09] MEDS: LevETIRAcetam 500 MG TABLET PO SCH ×2 (09:52→20:39)
[2019-02-09] MEDS: CLOPIDOGREL BISULFATE 75 MG TABLET PO SCH (09:52)
[2019-02-09] MEDS: DEXTROMETHORPHAN HBR/QUINIDINE 20/10 MG CAPSULE PO SCH (09:52)
[2019-02-09] MEDS: ZINC SULFATE 220 MG CAPSULE PO SCH (09:53)
[2019-02-09] MEDS: HEPARIN SODIUM,PORCINE 5,000 UNITS/ML VIAL SQ SCH ×2 (09:53→20:39)
[2019-02-09] MEDS: ASCORBIC ACID 500 MG TABLET PO SCH (09:53)
[2019-02-09 16:43] VITALS: BP 126/70
[2019-02-09] MEDS: SIMVASTATIN 20 MG TABLET PO SCH (20:39)
[2019-02-10 01:36] VITALS: BP 116/59
[2019-02-10] MEDS: LEVOTHYROXINE SODIUM 25 MCG TABLET PO SCH (06:13)
[2019-02-10 07:00] VITALS: BP 107/49
[2019-02-10] MEDS: DEXTROMETHORPHAN HBR/QUINIDINE 20/10 MG CAPSULE PO SCH (08:25)
[2019-02-10] MEDS: LevETIRAcetam 500 MG TABLET PO SCH ×2 (08:25→20:20)
[2019-02-10] MEDS: ASCORBIC ACID 500 MG TABLET PO SCH (08:26)
[2019-02-10] MEDS: MULTIVITAMINS WITH MINERALS, THERAPEUTIC TABLET PO SCH (08:26)
[2019-02-10] MEDS: ZINC SULFATE 220 MG CAPSULE PO SCH (08:26)
[2019-02-10] MEDS: CLOPIDOGREL BISULFATE 75 MG TABLET PO SCH (08:26)
[2019-02-10] MEDS: HEPARIN SODIUM,PORCINE 5,000 UNITS/ML VIAL SQ SCH ×2 (08:26→20:20)
[2019-02-10] MEDS: PANTOPRAZOLE SODIUM 40 MG DR TABLET PO SCH (08:26)
[2019-02-10] MEDS: DOCUSATE SODIUM 100 MG CAPSULE PO SCH (08:26)
[2019-02-10] MEDS: SENNA/DOCUSATE SODIUM 8.6-50 MG TABLET PO SCH ×2 (08:26→20:20)
[2019-02-10] MEDS: BISACODYL 10 MG RECTAL RECTAL SUPPOSITORY PR PRN (10:53)
[2019-02-10] MEDS: SULFAMETHOX/TRIMETH DS 800-160 MG/TABLET PO SCH ×2 (12:17→20:20)
[2019-02-10 16:56] VITALS: BP 117/64
[2019-02-10] MEDS: SIMVASTATIN 20 MG TABLET PO SCH (20:20)
[2019-02-11 05:00] VITALS: BP 108/63
[2019-02-11] MEDS: LEVOTHYROXINE SODIUM 25 MCG TABLET PO SCH (05:46)
[2019-02-11 07:29] VITALS: BP 102/50
[2019-02-11] MEDS: HEPARIN SODIUM,PORCINE 5,000 UNITS/ML VIAL SQ SCH ×2 (08:18→21:20)
[2019-02-11] MEDS: CLOPIDOGREL BISULFATE 75 MG TABLET PO SCH (08:29)
[2019-02-11] MEDS: SENNA/DOCUSATE SODIUM 8.6-50 MG TABLET PO SCH ×2 (08:30→21:20)
[2019-02-11] MEDS: ASCORBIC ACID 500 MG TABLET PO SCH (08:30)
[2019-02-11] MEDS: DEXTROMETHORPHAN HBR/QUINIDINE 20/10 MG CAPSULE PO SCH (08:30)
[2019-02-11] MEDS: SULFAMETHOX/TRIMETH DS 800-160 MG/TABLET PO SCH ×2 (08:30→21:20)
[2019-02-11] MEDS: DOCUSATE SODIUM 100 MG CAPSULE PO SCH (08:30)
[2019-02-11] MEDS: LevETIRAcetam 500 MG TABLET PO SCH ×2 (08:30→21:20)
[2019-02-11] MEDS: ZINC SULFATE 220 MG CAPSULE PO SCH (08:30)
[2019-02-11] MEDS: MULTIVITAMINS WITH MINERALS, THERAPEUTIC TABLET PO SCH (09:04)
[2019-02-11] MEDS: PANTOPRAZOLE SODIUM 40 MG DR TABLET PO SCH (09:05)
[2019-02-11 15:34] VITALS: BP 106/61
[2019-02-11] MEDS: SIMVASTATIN 20 MG TABLET PO SCH (21:20)
[2019-02-12 02:30] VITALS: BP 109/59
[2019-02-12] MEDS: LEVOTHYROXINE SODIUM 25 MCG TABLET PO SCH (06:22)
[2019-02-12 07:45] VITALS: BP 105/58
[2019-02-12] MEDS: DEXTROMETHORPHAN HBR/QUINIDINE 20/10 MG CAPSULE PO SCH (10:04)
[2019-02-12] MEDS: CLOPIDOGREL BISULFATE 75 MG TABLET PO SCH (10:05)
[2019-02-12] MEDS: ZINC SULFATE 220 MG CAPSULE PO SCH (10:05)
[2019-02-12] MEDS: SULFAMETHOX/TRIMETH DS 800-160 MG/TABLET PO SCH ×2 (10:05→20:41)
[2019-02-12] MEDS: SENNA/DOCUSATE SODIUM 8.6-50 MG TABLET PO SCH ×2 (10:05→20:43)
[2019-02-12] MEDS: PANTOPRAZOLE SODIUM 40 MG DR TABLET PO SCH (10:05)
[2019-02-12] MEDS: DOCUSATE SODIUM 100 MG CAPSULE PO SCH (10:05)
[2019-02-12] MEDS: ASCORBIC ACID 500 MG TABLET PO SCH (10:05)
[2019-02-12] MEDS: LevETIRAcetam 500 MG TABLET PO SCH ×2 (10:06→20:41)
[2019-02-12] MEDS: HEPARIN SODIUM,PORCINE 5,000 UNITS/ML VIAL SQ SCH ×2 (10:06→20:44)
[2019-02-12] MEDS: MULTIVITAMINS WITH MINERALS, THERAPEUTIC TABLET PO SCH (10:06)
[2019-02-12 15:14] VITALS: BP 126/65
[2019-02-12] MEDS: SIMVASTATIN 20 MG TABLET PO SCH (20:43)
[2019-02-13 05:23] VITALS: BP 135/77
[2019-02-13] MEDS: LEVOTHYROXINE SODIUM 25 MCG TABLET PO SCH (05:57)
[2019-02-13 07:30] VITALS: BP 105/68
[2019-02-13] MEDS: PANTOPRAZOLE SODIUM 40 MG DR TABLET PO SCH (08:24)
[2019-02-13] MEDS: HEPARIN SODIUM,PORCINE 5,000 UNITS/ML VIAL SQ SCH ×2 (08:24→20:29)
[2019-02-13] MEDS: DOCUSATE SODIUM 100 MG CAPSULE PO SCH (08:24)
[2019-02-13] MEDS: ZINC SULFATE 220 MG CAPSULE PO SCH (08:24)
[2019-02-13] MEDS: SULFAMETHOX/TRIMETH DS 800-160 MG/TABLET PO SCH ×2 (08:24→20:29)
[2019-02-13] MEDS: CLOPIDOGREL BISULFATE 75 MG TABLET PO SCH (08:24)
[2019-02-13] MEDS: DEXTROMETHORPHAN HBR/QUINIDINE 20/10 MG CAPSULE PO SCH (08:24)
[2019-02-13] MEDS: ASCORBIC ACID 500 MG TABLET PO SCH (08:25)
[2019-02-13] MEDS: SENNA/DOCUSATE SODIUM 8.6-50 MG TABLET PO SCH ×2 (08:25→20:29)
[2019-02-13] MEDS: LevETIRAcetam 500 MG TABLET PO SCH ×2 (08:25→20:29)
[2019-02-13] MEDS: MULTIVITAMINS WITH MINERALS, THERAPEUTIC TABLET PO SCH (08:25)
[2019-02-13 15:52] VITALS: BP 120/56
[2019-02-13] MEDS: SIMVASTATIN 20 MG TABLET PO SCH (20:29)
[2019-02-14 04:42] VITALS: BP 116/57
[2019-02-14] MEDS: LEVOTHYROXINE SODIUM 25 MCG TABLET PO SCH (06:25)
[2019-02-14 07:20] VITALS: BP 99/55
[2019-02-14] MEDS: ZINC SULFATE 220 MG CAPSULE PO SCH (08:49)
[2019-02-14] MEDS: CLOPIDOGREL BISULFATE 75 MG TABLET PO SCH (08:49)
[2019-02-14] MEDS: MULTIVITAMINS WITH MINERALS, THERAPEUTIC TABLET PO SCH (08:49)
[2019-02-14] MEDS: DEXTROMETHORPHAN HBR/QUINIDINE 20/10 MG CAPSULE PO SCH (08:50)
[2019-02-14] MEDS: PANTOPRAZOLE SODIUM 40 MG DR TABLET PO SCH (08:50)
[2019-02-14] MEDS: LevETIRAcetam 500 MG TABLET PO SCH (08:50)
[2019-02-14] MEDS: SULFAMETHOX/TRIMETH DS 800-160 MG/TABLET PO SCH (08:50)
[2019-02-14] MEDS: ASCORBIC ACID 500 MG TABLET PO SCH (08:50)
[2019-02-14] MEDS: DOCUSATE SODIUM 100 MG CAPSULE PO SCH (08:50)
[2019-02-14] MEDS: SENNA/DOCUSATE SODIUM 8.6-50 MG TABLET PO SCH (08:53)
[2019-02-14] MEDS: HEPARIN SODIUM,PORCINE 5,000 UNITS/ML VIAL SQ SCH (08:53)
[2019-02-14] MEDS ORDERED: ASCO500 PO (09:24)
[2019-02-14] MEDS ORDERED: DOCU-275 PO (09:24)
[2019-02-14] MEDS ORDERED: SULF1TAB42 PO (09:24)
[2019-02-14] MEDS ORDERED: MULT-1239 PO (09:24)
[2019-02-14] MEDS ORDERED: ZINC1CAP2 PO (09:24)
== END 2019-02-14 13:20 | disposition home health service (06) | DRG 57 ==
LOC: 2WR 14:45
PROVIDERS: ADMIT Physical Medicine & Rehabilitation; ATTEND Physical Medicine & Rehabilitation
DX: I69.351 Hemiplegia and hemiparesis following cerebral infarction affecting right dominant side (principal); G12.29 Other motor neuron disease; E44.0 Moderate protein-calorie malnutrition; N39.0 Urinary tract infection, site not specified; R47.01 Aphasia; E03.9 Hypothyroidism, unspecified; F43.21 Adjustment disorder with depressed mood; E66.9 Obesity, unspecified; E78.5 Hyperlipidemia, unspecified; B96.20 Unspecified Escherichia coli [E. coli] as the cause of diseases classified elsewhere; F32.9 Major depressive disorder, single episode, unspecified; L89.329 Pressure ulcer of left buttock, unspecified stage; Z66 Do not resuscitate; Z79.02 Long term (current) use of antithrombotics/antiplatelets; Z79.899 Other long term (current) drug therapy; Z80.3 Family history of malignant neoplasm of breast; Z90.710 Acquired absence of both cervix and uterus; Z93.1 Gastrostomy status; Z86.73 Personal history of transient ischemic attack (TIA), and cerebral infarction without residual deficits; Z86.718 Personal history of other venous thrombosis and embolism; Z68.36 Body mass index [BMI] 36.0-36.9, adult
CPT/HCPCS: 87081; 87086; 92507; 92508; 92523; 97110; 97112; 97116; 97150; 97163; 97167; 97530; 97535; 99366; J1644; Q0162

== ENCOUNTER → 2019-10-23 | Outpatient (CLI) | payer MEDICARE, BC ==
[~2019-10-23] MED LIST changes: -AMLO5TAB9 PO; +ASCO500 PO; +DOCU-275 PO; -MIRT15 PO; +MULT-1239 PO; -MULT-29 PO; +PANT-31 PO; -PANT40TA25 PO; -SENN-106 PO; -[UNRECOGNIZED DRUG - CODE] PO
== END | disposition home or self-care (01) ==
LOC: SRCNTR 13:21
PROVIDERS: ATTEND Hospitalist
DX: G12.29 Other motor neuron disease (principal); E78.5 Hyperlipidemia, unspecified; E03.9 Hypothyroidism, unspecified; I10 Essential (primary) hypertension; E66.01 Morbid (severe) obesity due to excess calories; Z86.73 Personal history of transient ischemic attack (TIA), and cerebral infarction without residual deficits
CPT/HCPCS: Q3014

== ENCOUNTER → 2020-02-11 | Outpatient (CLI) | payer MEDICARE, BC ==
[~2020-02-11] MED LIST changes: +CLOP-31 PO; -CLOP75TA32 PO; -DEXT1CAP3 PO; +LEVE250T55 PO; -LEVE500T53 PO; -SIMV-260 PO; +SIMV-261 PO
[2020-02-11 12:34] LABS: FREE T4 (FREE THYROXINE) 1.07 ng/dL (0.76-1.46); THYROID STIMULATING HORMONE 2.6 uIU/mL (0.36-3.74)
== END | disposition home or self-care (01) ==
LOC: LABPV 11:34
PROVIDERS: ATTEND Hospitalist
DX: E03.9 Hypothyroidism, unspecified (principal)
CPT/HCPCS: 84439; 84443

== ENCOUNTER → 2020-02-11 | Outpatient (CLI) | payer MEDICARE, BC ==
[~2020-02-11] MED LIST changes: +IBUPROFEN 800 MG TABLET ONE; +INFLUENZA VIRUS VACCINE QVS 2020-21 (6MO+)/PF 60 MCG/0.5 ML SYRINGE IM ONE
[2020-02-11 10:18] VITALS: BP 120/66
== END | disposition home or self-care (01) ==
LOC: SRCNTR 10:04
PROVIDERS: ATTEND Hospitalist
DX: Z23 Encounter for immunization (principal); E78.5 Hyperlipidemia, unspecified; E03.9 Hypothyroidism, unspecified; I10 Essential (primary) hypertension; E66.9 Obesity, unspecified; G12.29 Other motor neuron disease; F48.2 Pseudobulbar affect; Z86.73 Personal history of transient ischemic attack (TIA), and cerebral infarction without residual deficits
CPT/HCPCS: 90471; 90686; G0463

== ENCOUNTER → 2020-04-08 | Outpatient (CLI) | payer MEDICARE, BC ==
[~2020-04-08] MED LIST changes: -CLOP-31 PO; +CLOP75TA60 PO; -IBUPROFEN 800 MG TABLET ONE; -INFLUENZA VIRUS VACCINE QVS 2020-21 (6MO+)/PF 60 MCG/0.5 ML SYRINGE IM ONE
[2020-04-08 11:00] VITALS: BP 129/62
== END | disposition home or self-care (01) ==
LOC: SRCNTR 10:31
PROVIDERS: ATTEND Hospitalist
DX: I10 Essential (primary) hypertension (principal); E78.5 Hyperlipidemia, unspecified; E03.9 Hypothyroidism, unspecified; G12.29 Other motor neuron disease; R53.83 Other fatigue; Z86.73 Personal history of transient ischemic attack (TIA), and cerebral infarction without residual deficits
CPT/HCPCS: G0463

== ENCOUNTER → 2020-06-24 | Outpatient (CLI) | payer MEDICARE, BC | END | disposition home or self-care (01) | LOC: SRCNTR 11:30 | PROVIDERS: ATTEND Hospitalist | DX: E78.5 Hyperlipidemia, unspecified (principal); E03.9 Hypothyroidism, unspecified; I10 Essential (primary) hypertension; E66.9 Obesity, unspecified; F48.2 Pseudobulbar affect; Z86.73 Personal history of transient ischemic attack (TIA), and cerebral infarction without residual deficits | CPT/HCPCS: G0463; Z7500 ==

== ENCOUNTER → 2020-07-28 | Outpatient (CLI) | payer MEDICARE, BC ==
[~2020-07-28] MED LIST changes: +DEXT1CAP3 PO; -LEVE250T55 PO; +LEVE500T53 PO; +LEVE750T4 PO
== END | disposition home or self-care (01) ==
LOC: SRCNTR 14:15
PROVIDERS: ATTEND Hospitalist
DX: I10 Essential (primary) hypertension (principal); E03.9 Hypothyroidism, unspecified; E78.5 Hyperlipidemia, unspecified; E66.9 Obesity, unspecified; F48.2 Pseudobulbar affect; Z86.73 Personal history of transient ischemic attack (TIA), and cerebral infarction without residual deficits
CPT/HCPCS: Q3014

== ENCOUNTER → 2020-09-16 | Outpatient (CLI) | payer MEDICARE, BC ==
[~2020-09-16] MED LIST changes: +DOCU-270 PO; -DOCU-275 PO; +HYD25 PO
[2020-09-16 12:27] VITALS: BP 131/70
== END | disposition home or self-care (01) ==
LOC: SRCNTR 11:48
PROVIDERS: ATTEND Hospitalist
DX: I10 Essential (primary) hypertension (principal); E78.5 Hyperlipidemia, unspecified; E03.9 Hypothyroidism, unspecified; F48.2 Pseudobulbar affect; E66.9 Obesity, unspecified; Z86.73 Personal history of transient ischemic attack (TIA), and cerebral infarction without residual deficits
CPT/HCPCS: G0463

== ENCOUNTER → 2020-12-23 | Outpatient (CLI) | payer MEDICARE, BC ==
[~2020-12-23] MED LIST changes: +LEVE500T20 PO; -LEVE500T53 PO
== END | disposition home or self-care (01) ==
LOC: SRCNTR 11:26
PROVIDERS: ATTEND Hospitalist
DX: I10 Essential (primary) hypertension (principal); E03.9 Hypothyroidism, unspecified; E78.5 Hyperlipidemia, unspecified; E66.9 Obesity, unspecified; F48.2 Pseudobulbar affect; Z86.73 Personal history of transient ischemic attack (TIA), and cerebral infarction without residual deficits
CPT/HCPCS: Q3014

== ENCOUNTER → 2021-03-07 | Outpatient (CLI) | payer MEDICARE, BC | END | disposition home or self-care (01) | LOC: RADMN 14:38 | PROVIDERS: ATTEND Hospitalist | DX: G93.89 Other specified disorders of brain (principal); I67.82 Cerebral ischemia; J32.2 Chronic ethmoidal sinusitis; R93.0 Abnormal findings on diagnostic imaging of skull and head, not elsewhere classified | CPT/HCPCS: 70450 ==

== ENCOUNTER → 2021-03-23 | Outpatient (CLI) | payer MEDICARE, BC | END | disposition home or self-care (01) | LOC: SRCNTR 11:47 | PROVIDERS: ATTEND Hospitalist | DX: I10 Essential (primary) hypertension (principal); E78.5 Hyperlipidemia, unspecified | CPT/HCPCS: Q3014 ==

== ENCOUNTER 2021-04-23 20:45 | Inpatient (IN) | payer MEDICARE, BC ==
[~2021-04-23] VITALS: Ht 167.6 cm; Wt 71.3 kg
[~2021-04-23 20:45] MED LIST changes: -HYD25 PO; +HYDR-4527 PO
[2021-04-23 21:22] LABS: BASOPHILS % (AUTO) 0.8 % (0.0-2.0); EOSINOPHILS % (AUTO) 3.6 % (1.0-6.0); HEMATOCRIT 38.3 % (36-46); HEMOGLOBIN 12.9 g/dL (12.0-16.0); LYMPHOCYTES # (AUTO) 2.5 K/uL (1.0-4.8); LYMPHOCYTES % (AUTO) 27.2 % (22.0-44.0); MEAN CORPUSCULAR HEMOGLOBIN 28.3 pg (26.0-34.0); MEAN CORPUSCULAR HGB CONC 33.6 G/dL (31.0-37.0); MEAN CORPUSCULAR VOLUME 84 fL (80-100); MONOCYTES # (AUTO) 0.8 K/uL (0.1-1.0); MONOCYTES % (AUTO) 8.3 % (2.0-9.0); NEUTROPHILS # (AUTO) 5.5 K/uL (1.8-7.7); NEUTROPHILS % (AUTO) 60.1 % (40.0-70.0); PLATELET COUNT (AUTO) 184 K/uL (150-450); RED BLOOD CELL COUNT(AUTO) 4.55 MIL/uL (4.00-5.20); RED CELL DISTRIBUTION WIDTH 13.5 % (11.5-14.5)
[2021-04-23 21:36] LABS: GLUCOSE,POINT OF CARE 106 MG/DL (70-110)
[2021-04-23 21:36] LABS: PROTHROMBIN TIME 10.4 SEC (9.4-11.6)
[2021-04-23 21:40] LABS: AMMONIA 20 umol/L (11-32)
[2021-04-23 21:41] LABS: ANION GAP 6 mmol/L (8-16); CALCIUM, TOTAL 9.2 mg/dL (8.8-10.5); CARBON DIOXIDE 30 mmol/L (22-29); CHLORIDE 104 mmol/L (98-107); CREATININE 0.84 mg/dL (0.60-1.30); GLUCOSE,RANDOM 104 mg/dL (70-110); POTASSIUM 3.9 mmol/L (3.5-5.1); SALICYLATE < 2.8 mg/dL (2.8-20.0); SODIUM SERUM 140 mmol/L (136-145); UREA NITROGEN, BLOOD 14 mg/dL (7-18)
[2021-04-23 21:42] LABS: GLOMERULAR FILTR. RATE CALC > 60 mL/min (>60)
[2021-04-23 21:43] LABS: B-TYPE NATRIURETIC PEPTIDE 16 pg/mL (0-100)
[2021-04-23 21:47] LABS: LACTIC ACID 0.7 mmol/L (0.4-2.0)
[2021-04-23 21:54] LABS: ALANINE AMINOTRANSFERASE 11 U/L (12-78); ALBUMIN 3.8 g/dL (3.4-5.0); ALKALINE PHOSPHATASE 84 U/L (46-116); ASPARTATE AMINOTRANSFERASE 20 U/L (15-37); BILIRUBIN,TOTAL 0.4 mg/dL (0.1-1.0); CREATINE KINASE, TOTAL ONLY 182 U/L (26-192); PHOSPHORUS 3.7 mg/dL (2.5-4.9); TOTAL PROTEIN, SERUM 7.1 g/dL (6.4-8.2)
[2021-04-23 21:55] LABS: ACETAMINOPHEN < 2 mcg/mL (10-30)
[2021-04-23] MEDS ORDERED: LORazepam 2 MG/ML VIAL IVP ONE ×2 (22:30→23:45)
[2021-04-24 00:49] LABS: APPEARANCE,URINE CLEAR (CLEAR); BILIRUBIN,URINE NEGATIVE (NEGATIVE); GLUCOSE, URINE (UA) NEGATIVE (NEGATIVE); KETONES,URINE 15 mg/dL (NEGATIVE); LEUKOCYTE ESTERASE ,URINE NEGATIVE (NEGATIVE); NITRATE,URINE NEGATIVE (NEGATIVE); OCCULT BLOOD,URINE NEGATIVE (NEGATIVE); PH,URINE 5.5 (5.0-8.0); PROTEIN,URINE NEGATIVE (NEGATIVE)
[2021-04-24 00:54] LABS: AMPHET/METH SCREEN,URINE NEGATIVE (NEGATIVE); BARBITURATE SCREEN, URINE NEGATIVE (NEGATIVE); BENZODIAZEPINES SCREEN,URINE NEGATIVE (NEGATIVE); CANNABINOID SCREEN,URINE NEGATIVE (NEGATIVE); COCAINE SCREEN,URINE NEGATIVE (NEGATIVE); METHADONE SCREEN, URINE NEGATIVE (NEGATIVE); OPIATE SCREEN,URINE NEGATIVE (NEGATIVE)
[2021-04-24 00:55] LABS: PHENCYCLIDINE SCREEN,URINE NEGATIVE (NEGATIVE)
[2021-04-24] MEDS ORDERED: HydrOXYzine HCL 25 MG TABLET PO PRN (01:15)
[2021-04-24] MEDS ORDERED: ONDANSETRON HCL 4 MG/2 ML VIAL IVP PRN (01:15)
[2021-04-24 01:30] LABS: COVID AG,FIA SOURCE NASOPHARYNGEAL
[2021-04-24] MEDS ORDERED: 1: MAGNESIUM SULFATE 2 GM, MVI, ADULT NO.1 WITH VIT K 10 ML, THIAMINE 100 MG, FOLIC ACID IV SCH ×5 (01:30)
[2021-04-24] MEDS ORDERED: HALOPERIDOL LACTATE 5 MG/ML VIAL IM ONE (03:30)
[2021-04-24 04:00] VITALS: BP 133/71
[2021-04-24] MEDS: LEVOTHYROXINE SODIUM 25 MCG TABLET PO SCH (06:21)
[2021-04-24] MEDS ORDERED: INFLUENZA VIRUS VACCINE QVS 2021-22 (6MO+)/PF 60 MCG/0.5 ML SYRINGE IM. ONE (06:30)
[2021-04-24] MEDS: CLOPIDOGREL BISULFATE 75 MG TABLET PO SCH (08:22)
[2021-04-24] MEDS: DOCUSATE SODIUM 100 MG CAPSULE PO SCH (08:23)
[2021-04-24] MEDS: MULTIVITAMINS WITH MINERALS, THERAPEUTIC TABLET PO SCH (08:23)
[2021-04-24] MEDS: SIMVASTATIN 40 MG TABLET PO SCH (08:23)
[2021-04-24] MEDS: HEPARIN SODIUM,PORCINE 5,000 UNITS/ML VIAL SQ SCH ×2 (08:23→16:37)
[2021-04-24] MEDS: LevETIRAcetam 250 MG TABLET PO SCH (08:23)
[2021-04-24] MEDS: PANTOPRAZOLE SODIUM 40 MG DR TABLET PO SCH (08:23)
[2021-04-24] MEDS: VITAMIN B COMPLEX WITH C TABLET PO SCH ×2 (08:24→21:23)
[2021-04-24] MEDS ORDERED: ASCORBIC ACID 500 MG TABLET PO SCH (09:00)
[2021-04-24 09:47] VITALS: BP 138/83
[2021-04-24 20:58] VITALS: BP 113/47
[2021-04-24] MEDS: LevETIRAcetam 500 MG TABLET PO SCH (21:23)
[2021-04-25] MEDS: HEPARIN SODIUM,PORCINE 5,000 UNITS/ML VIAL SQ SCH ×5 (00:56→23:47)
[2021-04-25 01:43] VITALS: BP 110/68
[2021-04-25] MEDS: HALOPERIDOL 1 MG TABLET PO PRN ×3 (03:52→15:45)
[2021-04-25] MEDS: LEVOTHYROXINE SODIUM 25 MCG TABLET PO SCH (05:44)
[2021-04-25 06:16] VITALS: BP 106/63
[2021-04-25 07:50] VITALS: BP 126/73
[2021-04-25] MEDS: MULTIVITAMINS WITH MINERALS, THERAPEUTIC TABLET PO SCH (08:13)
[2021-04-25] MEDS: SIMVASTATIN 40 MG TABLET PO SCH (08:13)
[2021-04-25] MEDS: CLOPIDOGREL BISULFATE 75 MG TABLET PO SCH (08:14)
[2021-04-25] MEDS: LevETIRAcetam 250 MG TABLET PO SCH (08:14)
[2021-04-25] MEDS: PANTOPRAZOLE SODIUM 40 MG DR TABLET PO SCH (08:14)
[2021-04-25] MEDS: DOCUSATE SODIUM 100 MG CAPSULE PO SCH (08:14)
[2021-04-25] MEDS: VITAMIN B COMPLEX WITH C TABLET PO SCH ×2 (08:15→21:06)
[2021-04-25] MEDS ORDERED: LORazepam 2 MG/ML VIAL IVP PRN (09:45)
[2021-04-25 11:48] VITALS: BP 116/68
[2021-04-25 15:18] VITALS: BP 140/72
[2021-04-25 20:12] VITALS: BP 120/62
[2021-04-25] MEDS: LevETIRAcetam 500 MG TABLET PO SCH (21:05)
[2021-04-26 00:15] VITALS: BP 102/59
[2021-04-26 04:17] VITALS: BP 122/70
[2021-04-26] MEDS: LEVOTHYROXINE SODIUM 25 MCG TABLET PO SCH (06:00)
[2021-04-26 07:17] VITALS: BP 115/60
[2021-04-26] MEDS: HEPARIN SODIUM,PORCINE 5,000 UNITS/ML VIAL SQ SCH ×2 (07:47→16:27)
[2021-04-26] MEDS: CLOPIDOGREL BISULFATE 75 MG TABLET PO SCH (07:48)
[2021-04-26] MEDS: DOCUSATE SODIUM 100 MG CAPSULE PO SCH (07:48)
[2021-04-26] MEDS: LevETIRAcetam 250 MG TABLET PO SCH (07:49)
[2021-04-26] MEDS: SIMVASTATIN 40 MG TABLET PO SCH (07:49)
[2021-04-26] MEDS: MULTIVITAMINS WITH MINERALS, THERAPEUTIC TABLET PO SCH (07:49)
[2021-04-26] MEDS: PANTOPRAZOLE SODIUM 40 MG DR TABLET PO SCH (07:50)
[2021-04-26] MEDS: VITAMIN B COMPLEX WITH C TABLET PO SCH ×2 (07:55→21:30)
[2021-04-26 11:37] VITALS: BP 125/71
[2021-04-26 15:16] VITALS: BP 122/64
[2021-04-26 19:40] VITALS: BP 103/43
[2021-04-26] MEDS: LevETIRAcetam 500 MG TABLET PO SCH (21:29)
[2021-04-26] MEDS: MIRTAZAPINE 15 MG TABLET PO SCH (21:30)
[2021-04-27] VITALS (7 sets, daily range): BP systolic 114–135; BP diastolic 61–73
[2021-04-27] MEDS: HEPARIN SODIUM,PORCINE 5,000 UNITS/ML VIAL SQ SCH ×3 (00:40→15:53)
[2021-04-27] MEDS: HALOPERIDOL 1 MG TABLET PO PRN (00:40)
[2021-04-27] MEDS: LEVOTHYROXINE SODIUM 25 MCG TABLET PO SCH (06:33)
[2021-04-27] MEDS: LevETIRAcetam 250 MG TABLET PO SCH (09:48)
[2021-04-27] MEDS: SIMVASTATIN 40 MG TABLET PO SCH (09:49)
[2021-04-27] MEDS: CLOPIDOGREL BISULFATE 75 MG TABLET PO SCH (09:49)
[2021-04-27] MEDS: PANTOPRAZOLE SODIUM 40 MG DR TABLET PO SCH (09:49)
[2021-04-27] MEDS: DOCUSATE SODIUM 100 MG CAPSULE PO SCH (09:49)
[2021-04-27] MEDS: MULTIVITAMINS WITH MINERALS, THERAPEUTIC TABLET PO SCH (09:50)
[2021-04-27] MEDS: VITAMIN B COMPLEX WITH C TABLET PO SCH ×2 (09:51→21:50)
[2021-04-27] MEDS: LevETIRAcetam 500 MG TABLET PO SCH (21:49)
[2021-04-27] MEDS: MIRTAZAPINE 15 MG TABLET PO SCH (21:50)
[2021-04-28] MEDS: HEPARIN SODIUM,PORCINE 5,000 UNITS/ML VIAL SQ SCH ×2 (00:27→08:53)
[2021-04-28 04:51] VITALS: BP 138/80
[2021-04-28] MEDS: LEVOTHYROXINE SODIUM 25 MCG TABLET PO SCH (06:11)
[2021-04-28] MEDS: PANTOPRAZOLE SODIUM 40 MG DR TABLET PO SCH (08:53)
[2021-04-28] MEDS: DOCUSATE SODIUM 100 MG CAPSULE PO SCH (08:53)
[2021-04-28] MEDS: SIMVASTATIN 40 MG TABLET PO SCH (08:54)
[2021-04-28] MEDS: CLOPIDOGREL BISULFATE 75 MG TABLET PO SCH (08:54)
[2021-04-28] MEDS: LevETIRAcetam 250 MG TABLET PO SCH (08:54)
[2021-04-28] MEDS: MULTIVITAMINS WITH MINERALS, THERAPEUTIC TABLET PO SCH (09:01)
[2021-04-28] MEDS: VITAMIN B COMPLEX WITH C TABLET PO SCH (09:01)
[2021-04-28 09:25] VITALS: BP 125/69
[2021-04-28] MEDS ORDERED: MIRT-89 PO (09:36)
== END 2021-04-28 10:40 | disposition home health service (06) | DRG 71 ==
LOC: EMS 20:48 → 5S 04-24 03:03
PROVIDERS: ADMIT Internal Medicine; ATTEND Internal Medicine
DX: G93.40 Encephalopathy, unspecified (principal); I69.351 Hemiplegia and hemiparesis following cerebral infarction affecting right dominant side; E03.9 Hypothyroidism, unspecified; R41.89 Other symptoms and signs involving cognitive functions and awareness; E78.5 Hyperlipidemia, unspecified; F01.50 Vascular dementia, unspecified severity, without behavioral disturbance, psychotic disturbance, mood disturbance, and anxiety; F32.A Depression, unspecified; G40.909 Epilepsy, unspecified, not intractable, without status epilepticus; I10 Essential (primary) hypertension; Z20.822 Contact with and (suspected) exposure to COVID-19; R13.10 Dysphagia, unspecified; R82.4 Acetonuria; Z88.8 Allergy status to other drugs, medicaments and biological substances; I69.328 Other speech and language deficits following cerebral infarction; Z86.718 Personal history of other venous thrombosis and embolism; Z86.711 Personal history of pulmonary embolism; I69.391 Dysphagia following cerebral infarction; G93.89 Other specified disorders of brain
CPT/HCPCS: 51702; 70450; 70551; 71045; 80053; 81003; 82140; 82550; 82962; 83605; 83735; 83880; 84100; 84443; 84484; 85025; 85610; 85730; 87040; 92610; 93005; 93306; 95816; 97163; 97166; 97530; 97535; 99285; G0378; G0480; G0481; J1630; J1644; J2060; J3411; J3475; J3490; J7030; 36415-L1; 36415-TC

== ENCOUNTER → 2021-07-07 | Outpatient (CLI) | payer MEDICARE, BC ==
[~2021-07-07] MED LIST changes: +AMLO-257 PO; +BETA50CR5 TP; +CEPH-558 PO; -DEXT1CAP3 PO; -DOCU-270 PO; +DOCU-385 PO; +LEVO75 PO; +LORA-1000 PO; +MIRT-89 PO; +PARO10TA71 PO; +RISP0.5T66 PO; +SIMV-260 PO
[2021-07-07 12:15] VITALS: BP 107/57
== END | disposition home or self-care (01) ==
LOC: SRCNTR 11:54
PROVIDERS: ATTEND Hospitalist
DX: I10 Essential (primary) hypertension (principal); E03.9 Hypothyroidism, unspecified; R56.9 Unspecified convulsions; E78.5 Hyperlipidemia, unspecified; R45.1 Restlessness and agitation; F32.A Depression, unspecified
CPT/HCPCS: G0463; Z7500

== ENCOUNTER 2021-07-13 23:28 | Emergency (ER) | payer MEDICARE, BC ==
[~2021-07-13] VITALS: Ht 160 cm; Wt 72.2 kg
[~2021-07-13 23:28] MED LIST changes: -CEPH-558 PO; -HYDR-4527 PO; -LEVE500T20 PO; -PARO10TA71 PO; -RISP0.5T66 PO; -SIMV-260 PO
[2021-07-14 00:44] LABS: BASOPHILS % (AUTO) 0.4 % (0.0-2.0); EOSINOPHILS % (AUTO) 1.1 % (1.0-6.0); HEMATOCRIT 39.8 % (36-46); HEMOGLOBIN 13.3 g/dL (12.0-16.0); LYMPHOCYTES # (AUTO) 1.3 K/uL (1.0-4.8); LYMPHOCYTES % (AUTO) 13.8 % (22.0-44.0); MEAN CORPUSCULAR HEMOGLOBIN 28.3 pg (26.0-34.0); MEAN CORPUSCULAR HGB CONC 33.3 G/dL (31.0-37.0); MEAN CORPUSCULAR VOLUME 85 fL (80-100); MONOCYTES # (AUTO) 0.6 K/uL (0.1-1.0); MONOCYTES % (AUTO) 6.8 % (2.0-9.0); NEUTROPHILS # (AUTO) 7.2 K/uL (1.8-7.7); NEUTROPHILS % (AUTO) 77.9 % (40.0-70.0); PLATELET COUNT (AUTO) 206 K/uL (150-450); RED BLOOD CELL COUNT(AUTO) 4.69 MIL/uL (4.00-5.20); RED CELL DISTRIBUTION WIDTH 13.7 % (11.5-14.5)
[2021-07-14 00:55] LABS: ANION GAP 9 mmol/L (8-16); CALCIUM, TOTAL 9.5 mg/dL (8.8-10.5); CARBON DIOXIDE 28 mmol/L (22-29); CHLORIDE 102 mmol/L (98-107); CREATININE 0.94 mg/dL (0.60-1.30); GLUCOSE,RANDOM 120 mg/dL (70-110); POTASSIUM 3.4 mmol/L (3.5-5.1); SODIUM SERUM 139 mmol/L (136-145); UREA NITROGEN, BLOOD 11 mg/dL (7-18)
[2021-07-14 01:00] LABS: ALANINE AMINOTRANSFERASE 17 U/L (12-78); ALKALINE PHOSPHATASE 85 U/L (46-116); ASPARTATE AMINOTRANSFERASE 18 U/L (15-37); BILIRUBIN,TOTAL 0.3 mg/dL (0.1-1.0); TOTAL PROTEIN, SERUM 8.1 g/dL (6.4-8.2)
[2021-07-14 01:01] LABS: GLOMERULAR FILTR. RATE CALC > 60 mL/min (>60)
[2021-07-14 05:15] VITALS: BP 125/67
== END 2021-07-14 05:32 | disposition home or self-care (01) ==
LOC: EMS 23:31
DX: F03.90 Unspecified dementia, unspecified severity, without behavioral disturbance, psychotic disturbance, mood disturbance, and anxiety (principal); R41.82 Altered mental status, unspecified; R45.6 Violent behavior; I10 Essential (primary) hypertension; Z86.73 Personal history of transient ischemic attack (TIA), and cerebral infarction without residual deficits; Z88.6 Allergy status to analgesic agent
CPT/HCPCS: 71045; 80053; 84484; 85025; 93005; 99285

== ENCOUNTER 2021-07-14 09:42 | Inpatient (IN) | payer MEDICARE, BC ==
[~2021-07-14] VITALS: Ht 165.1 cm; Wt 71.2 kg
[2021-07-14 11:26] VITALS: BP 109/57
[2021-07-14] MEDS ORDERED: LORazepam 1 MG TABLET PO PRN (11:30)
[2021-07-14] MEDS ORDERED: ACETAMINOPHEN 325 MG TABLET PO PRN (11:45)
[2021-07-14] MEDS ORDERED: BISACODYL 10 MG RECTAL RECTAL SUPPOSITORY PR PRN (11:45)
[2021-07-14] MEDS ORDERED: ALBUTEROL SULFATE 2.5 MG/0.5 ML NEB SOLUTION NEB PRN (11:45)
[2021-07-14] MEDS ORDERED: ONDANSETRON HCL 4 MG/2 ML VIAL IVP PRN (11:45)
[2021-07-14] MEDS ORDERED: IPRATROPIUM BROMIDE 0.5 MG/2.5 ML NEB SOLUTION NEB PRN (11:45)
[2021-07-14] MEDS ORDERED: PNEUMOCOCCAL VACCINE POLYVALENT 0.5 ML VIAL [PPSV23] IM. ONE (12:15)
[2021-07-14 12:58] LABS: COVID AG,FIA SOURCE NASAL SWAB
[2021-07-14 14:53] LABS: BASOPHILS % (AUTO) 1.3 % (0.0-2.0); EOSINOPHILS % (AUTO) 1.2 % (1.0-6.0); HEMATOCRIT 38.2 % (36-46); HEMOGLOBIN 12.8 g/dL (12.0-16.0); LYMPHOCYTES # (AUTO) 2.6 K/uL (1.0-4.8); LYMPHOCYTES % (AUTO) 23.5 % (22.0-44.0); MEAN CORPUSCULAR HEMOGLOBIN 28.4 pg (26.0-34.0); MEAN CORPUSCULAR HGB CONC 33.5 G/dL (31.0-37.0); MEAN CORPUSCULAR VOLUME 85 fL (80-100); MONOCYTES # (AUTO) 0.8 K/uL (0.1-1.0); MONOCYTES % (AUTO) 7.6 % (2.0-9.0); NEUTROPHILS # (AUTO) 7.2 K/uL (1.8-7.7); NEUTROPHILS % (AUTO) 66.4 % (40.0-70.0); RED BLOOD CELL COUNT(AUTO) 4.51 MIL/uL (4.00-5.20); RED CELL DISTRIBUTION WIDTH 14.1 % (11.5-14.5)
[2021-07-14 15:25] LABS: PLATELET COUNT (AUTO) 168 K/uL (150-450)
[2021-07-14 15:33] LABS: ALANINE AMINOTRANSFERASE 18 U/L (12-78); ALBUMIN 3.7 g/dL (3.4-5.0); ALKALINE PHOSPHATASE 75 U/L (46-116); ANION GAP 6 mmol/L (8-16); ASPARTATE AMINOTRANSFERASE 16 U/L (15-37); BILIRUBIN,TOTAL 0.3 mg/dL (0.1-1.0); CALCIUM, TOTAL 9.1 mg/dL (8.8-10.5); CARBON DIOXIDE 30 mmol/L (22-29); CHLORIDE 105 mmol/L (98-107); CREATININE 0.91 mg/dL (0.60-1.30); GLUCOSE,RANDOM 129 mg/dL (70-110); POTASSIUM 3.9 mmol/L (3.5-5.1); SODIUM SERUM 141 mmol/L (136-145); TOTAL PROTEIN, SERUM 7.4 g/dL (6.4-8.2); UREA NITROGEN, BLOOD 11 mg/dL (7-18)
[2021-07-14 15:34] LABS: GLOMERULAR FILTR. RATE CALC > 60 mL/min (>60)
[2021-07-14 16:52] VITALS: BP 100/57
[2021-07-14 20:08] VITALS: BP 99/61
[2021-07-14] MEDS: LevETIRAcetam 500 MG TABLET PO SCH (21:09)
[2021-07-14] MEDS: DOCUSATE SODIUM 100 MG CAPSULE PO SCH (21:09)
[2021-07-15 04:22] VITALS: BP 106/69
[2021-07-15] MEDS: LEVOTHYROXINE SODIUM 25 MCG TABLET PO SCH (06:09)
[2021-07-15 07:19] VITALS: BP 104/70
[2021-07-15] MEDS: PANTOPRAZOLE SODIUM 40 MG DR TABLET PO SCH (09:15)
[2021-07-15] MEDS: CLOPIDOGREL BISULFATE 75 MG TABLET PO SCH (09:15)
[2021-07-15] MEDS: MULTIVITAMINS WITH MINERALS, THERAPEUTIC TABLET PO SCH (09:15)
[2021-07-15] MEDS: LevETIRAcetam 500 MG TABLET PO SCH ×2 (09:15→20:39)
[2021-07-15] MEDS: SIMVASTATIN 40 MG TABLET PO SCH (09:15)
[2021-07-15] MEDS: AmLODIPine BESYLATE 5 MG TABLET PO SCH (09:15)
[2021-07-15] MEDS: ASCORBIC ACID 500 MG TABLET PO SCH (09:16)
[2021-07-15] MEDS: DOCUSATE SODIUM 100 MG CAPSULE PO SCH ×2 (09:16→20:39)
[2021-07-15 15:02] VITALS: BP 112/78
[2021-07-15] MEDS: RisperiDONE 0.5 MG TABLET PO SCH (16:50)
[2021-07-15 19:30] VITALS: BP 104/57
[2021-07-16 04:15] VITALS: BP 116/73
[2021-07-16] MEDS ORDERED: LEVOTHYROXINE SODIUM 75 MCG TABLET PO SCH (06:30)
[2021-07-16 07:00] VITALS: BP 132/60
[2021-07-16 07:46] VITALS: BP 132/60
[2021-07-16] MEDS: RisperiDONE 0.5 MG TABLET PO SCH (09:09)
[2021-07-16] MEDS: AmLODIPine BESYLATE 5 MG TABLET PO SCH (09:10)
[2021-07-16] MEDS: LevETIRAcetam 500 MG TABLET PO SCH ×2 (09:10→21:20)
[2021-07-16] MEDS: PANTOPRAZOLE SODIUM 40 MG DR TABLET PO SCH (09:10)
[2021-07-16] MEDS: CLOPIDOGREL BISULFATE 75 MG TABLET PO SCH (09:10)
[2021-07-16] MEDS: SIMVASTATIN 40 MG TABLET PO SCH (09:11)
[2021-07-16] MEDS: DOCUSATE SODIUM 100 MG CAPSULE PO SCH ×2 (09:11→21:20)
[2021-07-16] MEDS: ASCORBIC ACID 500 MG TABLET PO SCH (09:11)
[2021-07-16] MEDS: MULTIVITAMINS WITH MINERALS, THERAPEUTIC TABLET PO SCH (09:11)
[2021-07-16 09:33] LABS: APPEARANCE,URINE TURBID (CLEAR); BILIRUBIN,URINE NEGATIVE (NEGATIVE); GLUCOSE, URINE (UA) NEGATIVE (NEGATIVE); KETONES,URINE NEGATIVE (NEGATIVE); LEUKOCYTE ESTERASE ,URINE MODERATE (NEGATIVE); NITRATE,URINE NEGATIVE (NEGATIVE); OCCULT BLOOD,URINE NEGATIVE (NEGATIVE); PROTEIN,URINE 30-70 mg/dL (NEGATIVE); SPECIFIC GRAVITIY, URINE 1.025 (1.003-1.030); UROBILINOGEN,URINE <=1.0 mg/dL (<=1.0)
[2021-07-16 10:08] LABS: BACTERIA,URINE Moderate /HPF (None Seen); RBC,URINE None Seen /HPF (0-2); SQUAMOUS EPITHELIAL CELL,UR Many /LPF (None Seen)
[2021-07-16 16:04] VITALS: BP 105/63
[2021-07-16 19:33] VITALS: BP 110/59
[2021-07-17] MEDS ORDERED: CefTRIAXone 1 GM/DEXTROSE 50 ML IV SCH
[2021-07-17] MEDS ORDERED: HALOPERIDOL LACTATE 5 MG/ML VIAL IM ONE ×2 (05:00→11:15)
[2021-07-17] MEDS: LEVOTHYROXINE SODIUM 25 MCG TABLET PO SCH (06:30)
[2021-07-17 08:00] VITALS: BP 118/80
[2021-07-17] MEDS: SIMVASTATIN 40 MG TABLET PO SCH (08:31)
[2021-07-17] MEDS: MULTIVITAMINS WITH MINERALS, THERAPEUTIC TABLET PO SCH (08:32)
[2021-07-17] MEDS: RisperiDONE 0.5 MG TABLET PO SCH ×2 (08:32→21:00)
[2021-07-17] MEDS: ASCORBIC ACID 500 MG TABLET PO SCH (08:33)
[2021-07-17] MEDS: PANTOPRAZOLE SODIUM 40 MG DR TABLET PO SCH (08:33)
[2021-07-17] MEDS: AmLODIPine BESYLATE 5 MG TABLET PO SCH (08:33)
[2021-07-17] MEDS: LevETIRAcetam 500 MG TABLET PO SCH ×2 (08:33→21:00)
[2021-07-17] MEDS: CLOPIDOGREL BISULFATE 75 MG TABLET PO SCH (08:33)
[2021-07-17] MEDS: CEPHALEXIN MONOHYDRATE 500 MG CAPSULE PO SCH ×4 (08:33→23:38)
[2021-07-17] MEDS: DOCUSATE SODIUM 100 MG CAPSULE PO SCH ×2 (08:37→21:00)
[2021-07-17] MEDS ORDERED: SIMV-260 PO (11:21)
[2021-07-17] MEDS ORDERED: LEVE500T20 PO (11:21)
[2021-07-17] MEDS ORDERED: LEVO75 PO (11:21)
[2021-07-17] MEDS ORDERED: LORazepam 2 MG/ML VIAL IM PRN (12:15)
[2021-07-17] MEDS ORDERED: HALOPERIDOL 2 MG TABLET PO PRN (12:15)
[2021-07-17] MEDS ORDERED: HALOPERIDOL LACTATE 5 MG/ML VIAL IM PRN (12:15)
[2021-07-17 16:46] VITALS: BP 104/60
[2021-07-17] MEDS: LORazepam 1 MG TABLET PO PRN (17:31)
[2021-07-18 06:02] VITALS: BP 125/58
[2021-07-18] MEDS: LEVOTHYROXINE SODIUM 25 MCG TABLET PO SCH (06:12)
[2021-07-18 08:55] VITALS: BP 113/67
[2021-07-18] MEDS: ASCORBIC ACID 500 MG TABLET PO SCH (09:53)
[2021-07-18] MEDS: CEPHALEXIN MONOHYDRATE 500 MG CAPSULE PO SCH ×2 (09:53→16:26)
[2021-07-18] MEDS: LevETIRAcetam 500 MG TABLET PO SCH ×2 (09:53→20:10)
[2021-07-18] MEDS: AmLODIPine BESYLATE 5 MG TABLET PO SCH (09:53)
[2021-07-18] MEDS: CLOPIDOGREL BISULFATE 75 MG TABLET PO SCH (09:53)
[2021-07-18] MEDS: DOCUSATE SODIUM 100 MG CAPSULE PO SCH ×2 (09:53→20:10)
[2021-07-18] MEDS: SIMVASTATIN 40 MG TABLET PO SCH (09:53)
[2021-07-18] MEDS: MULTIVITAMINS WITH MINERALS, THERAPEUTIC TABLET PO SCH (09:54)
[2021-07-18] MEDS: PANTOPRAZOLE SODIUM 40 MG DR TABLET PO SCH (09:54)
[2021-07-18] MEDS: PARoxetine HCL 10 MG TABLET PO SCH (09:54)
[2021-07-18 16:03] VITALS: BP 121/68
[2021-07-18] MEDS: RisperiDONE 0.5 MG TABLET PO SCH (20:10)
[2021-07-18 20:12] VITALS: BP 122/52
[2021-07-19] MEDS: CEPHALEXIN MONOHYDRATE 500 MG CAPSULE PO SCH ×5 (00:38→23:31)
[2021-07-19] MEDS: LEVOTHYROXINE SODIUM 25 MCG TABLET PO SCH (06:27)
[2021-07-19 06:30] VITALS: BP 107/64
[2021-07-19 08:02] VITALS: BP 97/51
[2021-07-19] MEDS: ASCORBIC ACID 500 MG TABLET PO SCH (08:36)
[2021-07-19] MEDS: DOCUSATE SODIUM 100 MG CAPSULE PO SCH ×3 (08:36→21:00)
[2021-07-19] MEDS: MEMANTINE HCL 5 MG TABLET PO SCH ×3 (08:37→21:00)
[2021-07-19] MEDS: PANTOPRAZOLE SODIUM 40 MG DR TABLET PO SCH (08:37)
[2021-07-19] MEDS: LevETIRAcetam 500 MG TABLET PO SCH ×4 (08:37→23:32)
[2021-07-19] MEDS: PARoxetine HCL 10 MG TABLET PO SCH (08:37)
[2021-07-19] MEDS: CLOPIDOGREL BISULFATE 75 MG TABLET PO SCH (08:37)
[2021-07-19] MEDS: AmLODIPine BESYLATE 5 MG TABLET PO SCH (08:37)
[2021-07-19] MEDS: SIMVASTATIN 40 MG TABLET PO SCH (08:37)
[2021-07-19] MEDS: MULTIVITAMINS WITH MINERALS, THERAPEUTIC TABLET PO SCH (08:37)
[2021-07-19] MEDS ORDERED: CEPH-558 PO (12:50)
[2021-07-19] MEDS ORDERED: RISP0.5T66 PO (12:50)
[2021-07-19] MEDS ORDERED: PARO10TA71 PO (12:50)
[2021-07-19 15:05] VITALS: BP 102/62
[2021-07-19] MEDS: LORazepam 1 MG TABLET PO PRN (18:12)
[2021-07-19 19:39] VITALS: BP 124/65
[2021-07-19] MEDS: RisperiDONE 0.5 MG TABLET PO SCH (20:02)
[2021-07-20 04:30] VITALS: BP 128/70
[2021-07-20] MEDS: LEVOTHYROXINE SODIUM 25 MCG TABLET PO SCH (06:12)
[2021-07-20] MEDS: CEPHALEXIN MONOHYDRATE 500 MG CAPSULE PO SCH ×2 (09:17→16:32)
[2021-07-20] MEDS: AmLODIPine BESYLATE 5 MG TABLET PO SCH (09:18)
[2021-07-20] MEDS: PARoxetine HCL 10 MG TABLET PO SCH (09:19)
[2021-07-20] MEDS: CLOPIDOGREL BISULFATE 75 MG TABLET PO SCH (09:20)
[2021-07-20] MEDS: DOCUSATE SODIUM 100 MG CAPSULE PO SCH (09:21)
[2021-07-20] MEDS: MEMANTINE HCL 5 MG TABLET PO SCH (09:21)
[2021-07-20] MEDS: PANTOPRAZOLE SODIUM 40 MG DR TABLET PO SCH (09:21)
[2021-07-20] MEDS: MULTIVITAMINS WITH MINERALS, THERAPEUTIC TABLET PO SCH (09:22)
[2021-07-20] MEDS: ASCORBIC ACID 500 MG TABLET PO SCH (09:26)
[2021-07-20 09:28] VITALS: BP 115/60
[2021-07-20] MEDS: SIMVASTATIN 40 MG TABLET PO SCH (10:43)
[2021-07-20 11:56] LABS: COVID AG,FIA SOURCE NASOPHARYNGEAL
[2021-07-20 16:00] VITALS: BP 97/54
== END 2021-07-20 18:30 | DRG 71 ==
LOC: 6S 10:34
PROVIDERS: ADMIT Hospitalist; ATTEND Hospitalist
DX: G93.40 Encephalopathy, unspecified (principal); N39.0 Urinary tract infection, site not specified; I69.351 Hemiplegia and hemiparesis following cerebral infarction affecting right dominant side; R62.7 Adult failure to thrive; F01.50 Vascular dementia, unspecified severity, without behavioral disturbance, psychotic disturbance, mood disturbance, and anxiety; E78.5 Hyperlipidemia, unspecified; G40.909 Epilepsy, unspecified, not intractable, without status epilepticus; Z20.822 Contact with and (suspected) exposure to COVID-19; I10 Essential (primary) hypertension; E03.9 Hypothyroidism, unspecified; Z68.26 Body mass index [BMI] 26.0-26.9, adult; I69.318 Other symptoms and signs involving cognitive functions following cerebral infarction; Z79.02 Long term (current) use of antithrombotics/antiplatelets; Z79.899 Other long term (current) drug therapy; Z88.8 Allergy status to other drugs, medicaments and biological substances
CPT/HCPCS: 80053; 81001; 84145; 85025; 87086; 97110; 97112; 97162; 97530; G0378; J0696; J1630

== ENCOUNTER → 2021-10-10 | Outpatient (CLI) | payer MEDICARE, BC ==
[~2021-10-10] MED LIST changes: +CEPH-558 PO; +LEVE500T20 PO; -LEVE750T4 PO; -LEVO25TA9 PO; -MIRT-89 PO; +PARO10TA71 PO; +RISP0.5T66 PO; +SIMV-260 PO; -SIMV-261 PO
== END | disposition home or self-care (01) ==
LOC: RADMN 14:57
PROVIDERS: ATTEND Podiatrist Foot & Ankle Surgery
DX: M79.674 Pain in right toe(s) (principal); M86.9 Osteomyelitis, unspecified
CPT/HCPCS: 73660-TC

== ENCOUNTER → 2021-11-08 | Outpatient (CLI) | payer MEDICARE, BC ==
[2021-11-08 11:43] VITALS: BP 115/98
== END | disposition home or self-care (01) ==
LOC: SRCNTR 11:13
PROVIDERS: ATTEND Internal Medicine
DX: I10 Essential (primary) hypertension (principal); E78.5 Hyperlipidemia, unspecified; F03.90 Unspecified dementia, unspecified severity, without behavioral disturbance, psychotic disturbance, mood disturbance, and anxiety; I63.9 Cerebral infarction, unspecified
CPT/HCPCS: 93005; G0463

== ENCOUNTER → 2021-11-09 | Outpatient (CLI) | payer MEDICARE, BC ==
[~2021-11-09] MED LIST changes: +AMLO2.5T96 PO; +CEPH250S35 PO; +LEVE500T8 PO; +LEVE750T66 PO; +SIMV-46 PO
[2021-11-09 13:37] VITALS: BP 108/64
== END | disposition home or self-care (01) ==
LOC: SRCNTR 11:01
PROVIDERS: ATTEND Hospitalist
DX: I10 Essential (primary) hypertension (principal); E78.5 Hyperlipidemia, unspecified; E03.9 Hypothyroidism, unspecified; G40.909 Epilepsy, unspecified, not intractable, without status epilepticus; F32.A Depression, unspecified; L08.89 Other specified local infections of the skin and subcutaneous tissue; R45.1 Restlessness and agitation
CPT/HCPCS: G0463; Z7500

== ENCOUNTER → 2021-11-09 | Outpatient (CLI) | payer MEDICARE, BC ==
[~2021-11-09] MED LIST changes: -AMLO2.5T96 PO; -CEPH250S35 PO; -LEVE500T8 PO; -LEVE750T66 PO; -SIMV-46 PO
== END | disposition home or self-care (01) ==
LOC: RADPV 12:53
PROVIDERS: ATTEND Internal Medicine
DX: I82.512 Chronic embolism and thrombosis of left femoral vein (principal); I73.9 Peripheral vascular disease, unspecified
CPT/HCPCS: 93926; 93971

== ENCOUNTER → 2021-11-22 | Outpatient (CLI) | payer MEDICARE, BC ==
[~2021-11-22] MED LIST changes: +AMLO2.5T96 PO; +CEPH250S35 PO; +LEVE500T8 PO; +SIMV-46 PO
[2021-11-22 15:09] VITALS: BP 115/57
== END | disposition home or self-care (01) ==
LOC: SRCNTR 14:39
PROVIDERS: ATTEND Internal Medicine
DX: I73.9 Peripheral vascular disease, unspecified (principal); I10 Essential (primary) hypertension; E78.5 Hyperlipidemia, unspecified; Z86.718 Personal history of other venous thrombosis and embolism; Z86.73 Personal history of transient ischemic attack (TIA), and cerebral infarction without residual deficits; Z79.02 Long term (current) use of antithrombotics/antiplatelets; Z79.899 Other long term (current) drug therapy; Z88.8 Allergy status to other drugs, medicaments and biological substances; Z91.048 Other nonmedicinal substance allergy status; Z98.890 Other specified postprocedural states
CPT/HCPCS: G0463

== ENCOUNTER → 2021-11-23 | Outpatient (CLI) | payer MEDICARE, BC ==
[~2021-11-23] MED LIST changes: -AMLO-257 PO; -CEPH-558 PO; -LEVE500T20 PO; -LORA-1000 PO; -PARO10TA71 PO; -SIMV-260 PO
== END | disposition home or self-care (01) ==
LOC: RADPV 13:04
PROVIDERS: ATTEND Internal Medicine
DX: S81.801A Unspecified open wound, right lower leg, initial encounter (principal); X58.XXXA Exposure to other specified factors, initial encounter; Y93.89 Activity, other specified; Y92.89 Other specified places as the place of occurrence of the external cause; Y99.8 Other external cause status
CPT/HCPCS: 93926

== ENCOUNTER 2021-12-22 21:11 | Inpatient (IN) | payer MEDICARE, BC ==
[~2021-12-22] VITALS: Ht 170.2 cm; Wt 76.9 kg
[2021-12-22] MEDS ORDERED: SODIUM CHLORIDE 0.9% 500 ML IV ONE (22:00)
[2021-12-22 22:20] LABS: BASOPHILS % (AUTO) 0.8 % (0.0-2.0); EOSINOPHILS % (AUTO) 2.8 % (1.0-6.0); HEMOGLOBIN 12.1 g/dL (12.0-16.0); LYMPHOCYTES % (AUTO) 24.5 % (22.0-44.0); MEAN CORPUSCULAR HEMOGLOBIN 28.7 pg (26.0-34.0); MEAN CORPUSCULAR HGB CONC 32.7 G/dL (31.0-37.0); MEAN CORPUSCULAR VOLUME 88 fL (80-100); MONOCYTES # (AUTO) 0.8 K/uL (0.1-1.0); MONOCYTES % (AUTO) 10.2 % (2.0-9.0); NEUTROPHILS % (AUTO) 61.7 % (40.0-70.0); PLATELET COUNT (AUTO) 181 K/uL (150-450); RED BLOOD CELL COUNT(AUTO) 4.21 MIL/uL (4.00-5.20); RED CELL DISTRIBUTION WIDTH 14.4 % (11.5-14.5)
[2021-12-22 22:30] LABS: ANION GAP 9 mmol/L (8-16); CALCIUM, TOTAL 9.2 mg/dL (8.8-10.5); CARBON DIOXIDE 28 mmol/L (22-29); CHLORIDE 103 mmol/L (98-107); CREATININE 0.75 mg/dL (0.60-1.30); GLOMERULAR FILTR. RATE CALC > 60 mL/min (>60); GLUCOSE,RANDOM 123 mg/dL (70-110); POTASSIUM 3.4 mmol/L (3.5-5.1); SODIUM SERUM 140 mmol/L (136-145); UREA NITROGEN, BLOOD 13 mg/dL (7-18)
[2021-12-22 22:38] LABS: INR 0.9 (0.9-1.1); PROTHROMBIN TIME 9.9 SEC (9.4-11.6)
[2021-12-22 22:40] LABS: ALANINE AMINOTRANSFERASE 14 U/L (12-78); ALBUMIN 3.3 g/dL (3.4-5.0); ALKALINE PHOSPHATASE 72 U/L (46-116); ASPARTATE AMINOTRANSFERASE 15 U/L (15-37); BILIRUBIN,TOTAL 0.2 mg/dL (0.1-1.0); TOTAL PROTEIN, SERUM 6.9 g/dL (6.4-8.2)
[2021-12-22] MEDS ORDERED: MORPHINE SULFATE 4 MG/ML SYRINGE IVP ONE (23:30)
[2021-12-22] MEDS ORDERED: ONDANSETRON HCL 4 MG/2 ML VIAL IVP ONE (23:30)
[2021-12-22] MEDS ORDERED: POTASSIUM CHLORIDE 20 MEQ ER TABLET PO ONE (23:45)
[2021-12-23] MEDS ORDERED: ACETAMINOPHEN 500 MG TABLET PO ONE (00:30)
[2021-12-23 01:23] LABS: COVID AG,FIA SOURCE NASAL SWAB
[2021-12-23] MEDS ORDERED: ONDANSETRON HCL 4 MG/2 ML VIAL IVP PRN (04:45)
[2021-12-23] MEDS: HEPARIN SODIUM,PORCINE 5,000 UNITS/ML VIAL SQ SCH ×3 (07:38→23:48)
[2021-12-23 08:17] LABS: BILIRUBIN,URINE NEGATIVE (NEGATIVE); GLUCOSE, URINE (UA) NEGATIVE (NEGATIVE); KETONES,URINE NEGATIVE (NEGATIVE); LEUKOCYTE ESTERASE ,URINE TRACE (NEGATIVE); NITRATE,URINE POSITIVE (NEGATIVE); OCCULT BLOOD,URINE NEGATIVE (NEGATIVE); PH,URINE 5.5 (5.0-8.0); PROTEIN,URINE NEGATIVE (NEGATIVE); UROBILINOGEN,URINE <=1.0 mg/dL (<=1.0)
[2021-12-23 08:23] LABS: APPEARANCE,URINE HAZY (CLEAR)
[2021-12-23 08:24] LABS: BACTERIA,URINE Many /HPF (None Seen); RBC,URINE None Seen /HPF (0-2); SQUAMOUS EPITHELIAL CELL,UR Moderate /LPF (None Seen)
[2021-12-23] MEDS ORDERED: CefTRIAXone 1 GM/DEXTROSE 50 ML IV ONE (16:15)
[2021-12-23] MEDS: LORazepam 2 MG/ML VIAL IVP PRN (16:21)
[2021-12-23] MEDS ORDERED: PARoxetine HCL 20 MG TABLET PO ONE (17:30)
[2021-12-23] MEDS ORDERED: LEVE750T66 PO (17:45)
[2021-12-23] MEDS ORDERED: SIMV-260 PO (17:48)
[2021-12-23 18:13] LABS: FREE T4 (FREE THYROXINE) 1.08 ng/dL (0.76-1.46); THYROID STIMULATING HORMONE 3.65 uIU/mL (0.36-3.74)
[2021-12-23 21:13] VITALS: BP 124/57
[2021-12-23] MEDS: RisperiDONE 0.5 MG TABLET PO SCH (22:51)
[2021-12-24 04:20] VITALS: BP 115/63
[2021-12-24] MEDS: LEVOTHYROXINE SODIUM 75 MCG TABLET PO SCH (06:22)
[2021-12-24 07:56] VITALS: BP 129/63
[2021-12-24] MEDS: HEPARIN SODIUM,PORCINE 5,000 UNITS/ML VIAL SQ SCH ×3 (08:00→16:05)
[2021-12-24] MEDS: MULTIVITAMINS WITH MINERALS, THERAPEUTIC TABLET PO SCH ×2 (09:00→09:44)
[2021-12-24] MEDS: PANTOPRAZOLE SODIUM 40 MG DR TABLET PO SCH (09:00)
[2021-12-24] MEDS: ASCORBIC ACID 500 MG TABLET PO SCH ×2 (09:00→09:46)
[2021-12-24] MEDS: AmLODIPine BESYLATE 2.5 MG TABLET PO SCH ×2 (09:44→11:41)
[2021-12-24] MEDS: CLOPIDOGREL BISULFATE 75 MG TABLET PO SCH ×2 (09:44→11:41)
[2021-12-24] MEDS: SIMVASTATIN 20 MG TABLET PO SCH ×2 (09:45→11:41)
[2021-12-24] MEDS: BETAMETHASONE 0.05% TP SCH ×2 (11:47→20:23)
[2021-12-24 15:07] VITALS: BP 127/69
[2021-12-24 15:57] LABS: BASOPHILS % (AUTO) 0.5 % (0.0-2.0); EOSINOPHILS % (AUTO) 1.7 % (1.0-6.0); HEMATOCRIT 37.3 % (36-46); HEMOGLOBIN 12.2 g/dL (12.0-16.0); LYMPHOCYTES # (AUTO) 1.4 K/uL (1.0-4.8); LYMPHOCYTES % (AUTO) 14.2 % (22.0-44.0); MEAN CORPUSCULAR HEMOGLOBIN 28.9 pg (26.0-34.0); MEAN CORPUSCULAR HGB CONC 32.8 G/dL (31.0-37.0); MEAN CORPUSCULAR VOLUME 88 fL (80-100); MONOCYTES # (AUTO) 0.7 K/uL (0.1-1.0); MONOCYTES % (AUTO) 6.9 % (2.0-9.0); NEUTROPHILS # (AUTO) 7.4 K/uL (1.8-7.7); NEUTROPHILS % (AUTO) 76.7 % (40.0-70.0); PLATELET COUNT (AUTO) 196 K/uL (150-450); RED BLOOD CELL COUNT(AUTO) 4.24 MIL/uL (4.00-5.20); RED CELL DISTRIBUTION WIDTH 14.5 % (11.5-14.5)
[2021-12-24] MEDS ORDERED: SODIUM CHLORIDE 0.9% 250 ML IV ONE (16:00)
[2021-12-24] MEDS: CefTRIAXone 1 GM/DEXTROSE 50 ML IV SCH (16:04)
[2021-12-24 16:09] LABS: ANION GAP 7 mmol/L (8-16); CALCIUM, TOTAL 9.1 mg/dL (8.8-10.5); CARBON DIOXIDE 30 mmol/L (22-29); CHLORIDE 103 mmol/L (98-107); CREATININE 0.86 mg/dL (0.60-1.30); GLUCOSE,RANDOM 139 mg/dL (70-110); POTASSIUM 3.8 mmol/L (3.5-5.1); SODIUM SERUM 140 mmol/L (136-145); UREA NITROGEN, BLOOD 10 mg/dL (7-18)
[2021-12-24 16:12] LABS: GLOMERULAR FILTR. RATE CALC > 60 mL/min (>60)
[2021-12-24 16:14] LABS: ALANINE AMINOTRANSFERASE 14 U/L (12-78); ALBUMIN 3.4 g/dL (3.4-5.0); ALKALINE PHOSPHATASE 70 U/L (46-116); ASPARTATE AMINOTRANSFERASE 15 U/L (15-37); BILIRUBIN,TOTAL 0.3 mg/dL (0.1-1.0)
[2021-12-24 19:15] VITALS: BP 130/74
[2021-12-24] MEDS: RisperiDONE 0.5 MG TABLET PO SCH (20:23)
[2021-12-25] MEDS: HEPARIN SODIUM,PORCINE 5,000 UNITS/ML VIAL SQ SCH ×4 (00:05→23:35)
[2021-12-25 04:36] VITALS: BP 109/61
[2021-12-25] MEDS: LEVOTHYROXINE SODIUM 75 MCG TABLET PO SCH (06:15)
[2021-12-25 08:10] VITALS: BP 110/67
[2021-12-25] MEDS: PANTOPRAZOLE SODIUM 40 MG DR TABLET PO SCH ×2 (08:42→08:55)
[2021-12-25] MEDS: MULTIVITAMINS WITH MINERALS, THERAPEUTIC TABLET PO SCH (08:52)
[2021-12-25] MEDS: CLOPIDOGREL BISULFATE 75 MG TABLET PO SCH (08:53)
[2021-12-25] MEDS: ASCORBIC ACID 500 MG TABLET PO SCH (08:53)
[2021-12-25] MEDS: AmLODIPine BESYLATE 2.5 MG TABLET PO SCH (09:00)
[2021-12-25] MEDS: BETAMETHASONE 0.05% TP SCH ×2 (15:05→22:11)
[2021-12-25] MEDS: CefTRIAXone 1 GM/DEXTROSE 50 ML IV SCH (15:05)
[2021-12-25] MEDS: SIMVASTATIN 20 MG TABLET PO SCH (15:07)
[2021-12-25 16:25] VITALS: BP 112/60
[2021-12-25 17:31] VITALS: BP 120/69
[2021-12-25] MEDS: ACETAMINOPHEN 325 MG TABLET PO PRN (18:35)
[2021-12-25] MEDS: RisperiDONE 0.5 MG TABLET PO SCH (19:53)
[2021-12-25 20:04] VITALS: BP 122/65
[2021-12-26 04:56] VITALS: BP 110/64
[2021-12-26] MEDS: LEVOTHYROXINE SODIUM 75 MCG TABLET PO SCH (06:02)
[2021-12-26 08:31] VITALS: BP 120/72
[2021-12-26] MEDS: BETAMETHASONE 0.05% TP SCH ×2 (09:00→19:42)
[2021-12-26] MEDS: AmLODIPine BESYLATE 2.5 MG TABLET PO SCH (09:05)
[2021-12-26] MEDS: PANTOPRAZOLE SODIUM 40 MG DR TABLET PO SCH (09:05)
[2021-12-26] MEDS: HEPARIN SODIUM,PORCINE 5,000 UNITS/ML VIAL SQ SCH ×2 (09:05→16:48)
[2021-12-26] MEDS: CLOPIDOGREL BISULFATE 75 MG TABLET PO SCH (09:05)
[2021-12-26] MEDS: ASCORBIC ACID 500 MG TABLET PO SCH (09:05)
[2021-12-26] MEDS: SIMVASTATIN 20 MG TABLET PO SCH (09:05)
[2021-12-26] MEDS: MULTIVITAMINS WITH MINERALS, THERAPEUTIC TABLET PO SCH (09:05)
[2021-12-26] MEDS: ACETAMINOPHEN 325 MG TABLET PO PRN (12:39)
[2021-12-26] MEDS: CefTRIAXone 1 GM/DEXTROSE 50 ML IV SCH (12:39)
[2021-12-26] MEDS: LORazepam 2 MG/ML VIAL IVP PRN (15:05)
[2021-12-26 16:00] VITALS: BP 118/72
[2021-12-26 16:19] LABS: BASOPHILS % (AUTO) 0.8 % (0.0-2.0); EOSINOPHILS % (AUTO) 3.4 % (1.0-6.0); HEMATOCRIT 34.9 % (36-46); HEMOGLOBIN 11.4 g/dL (12.0-16.0); LYMPHOCYTES # (AUTO) 1.8 K/uL (1.0-4.8); LYMPHOCYTES % (AUTO) 20.1 % (22.0-44.0); MEAN CORPUSCULAR HEMOGLOBIN 28.8 pg (26.0-34.0); MEAN CORPUSCULAR HGB CONC 32.7 G/dL (31.0-37.0); MEAN CORPUSCULAR VOLUME 88 fL (80-100); MONOCYTES # (AUTO) 0.8 K/uL (0.1-1.0); MONOCYTES % (AUTO) 9.6 % (2.0-9.0); NEUTROPHILS # (AUTO) 5.8 K/uL (1.8-7.7); NEUTROPHILS % (AUTO) 66.1 % (40.0-70.0); PLATELET COUNT (AUTO) 181 K/uL (150-450); RED BLOOD CELL COUNT(AUTO) 3.96 MIL/uL (4.00-5.20); RED CELL DISTRIBUTION WIDTH 14.8 % (11.5-14.5)
[2021-12-26 16:38] LABS: ANION GAP 5 mmol/L (8-16); CALCIUM, TOTAL 8.8 mg/dL (8.8-10.5); CARBON DIOXIDE 30 mmol/L (22-29); CHLORIDE 104 mmol/L (98-107); CREATININE 0.86 mg/dL (0.60-1.30); GLUCOSE,RANDOM 97 mg/dL (70-110); SODIUM SERUM 139 mmol/L (136-145); UREA NITROGEN, BLOOD 15 mg/dL (7-18)
[2021-12-26 16:40] LABS: GLOMERULAR FILTR. RATE CALC > 60 mL/min (>60)
[2021-12-26 16:47] LABS: ALANINE AMINOTRANSFERASE 17 U/L (12-78); ALKALINE PHOSPHATASE 66 U/L (46-116); ASPARTATE AMINOTRANSFERASE 24 U/L (15-37); BILIRUBIN,TOTAL 0.2 mg/dL (0.1-1.0); PHOSPHORUS 3.5 mg/dL (2.5-4.9); TOTAL PROTEIN, SERUM 6.5 g/dL (6.4-8.2)
[2021-12-26] MEDS ORDERED: MAGNESIUM SULFATE 2 GM/WATER 50 ML IV ONE (18:00)
[2021-12-26 21:00] VITALS: BP 110/57
[2021-12-26] MEDS ORDERED: RisperiDONE 0.5 MG TABLET PO SCH (21:00)
[2021-12-27] MEDS: HEPARIN SODIUM,PORCINE 5,000 UNITS/ML VIAL SQ SCH ×2 (00:07→08:32)
[2021-12-27] MEDS: ACETAMINOPHEN 325 MG TABLET PO PRN (00:55)
[2021-12-27 04:06] VITALS: BP 103/55
[2021-12-27] MEDS: LEVOTHYROXINE SODIUM 75 MCG TABLET PO SCH (06:19)
[2021-12-27 07:30] VITALS: BP 113/63
[2021-12-27] MEDS: MULTIVITAMINS WITH MINERALS, THERAPEUTIC TABLET PO SCH (08:30)
[2021-12-27] MEDS: ASCORBIC ACID 500 MG TABLET PO SCH (08:31)
[2021-12-27] MEDS: PANTOPRAZOLE SODIUM 40 MG DR TABLET PO SCH (08:31)
[2021-12-27] MEDS: CLOPIDOGREL BISULFATE 75 MG TABLET PO SCH (08:31)
[2021-12-27] MEDS: AmLODIPine BESYLATE 2.5 MG TABLET PO SCH (08:31)
[2021-12-27] MEDS: SIMVASTATIN 20 MG TABLET PO SCH (08:31)
[2021-12-27] MEDS: BETAMETHASONE 0.05% TP SCH (08:32)
[2021-12-27] MEDS ORDERED: PARoxetine HCL 10 MG TABLET PO SCH (09:00)
[2021-12-27] MEDS ORDERED: SODIUM CHLORIDE 0.9% 250 ML IV ONE (14:38)
[2021-12-27] MEDS: CefTRIAXone 1 GM/DEXTROSE 50 ML IV SCH (14:49)
== END 2021-12-27 15:50 | disposition home health service (06) | DRG 103 ==
LOC: EMS 21:11 → 6S 12-23 20:20
PROVIDERS: ADMIT Internal Medicine; ATTEND Internal Medicine
DX: R51.9 Headache, unspecified (principal); F01.53 Vascular dementia, unspecified severity, with mood disturbance; I69.351 Hemiplegia and hemiparesis following cerebral infarction affecting right dominant side; N39.0 Urinary tract infection, site not specified; R47.01 Aphasia; G40.909 Epilepsy, unspecified, not intractable, without status epilepticus; E03.9 Hypothyroidism, unspecified; E78.00 Pure hypercholesterolemia, unspecified; E87.6 Hypokalemia; I10 Essential (primary) hypertension; L08.9 Local infection of the skin and subcutaneous tissue, unspecified; L60.0 Ingrowing nail; Z20.822 Contact with and (suspected) exposure to COVID-19; Z88.8 Allergy status to other drugs, medicaments and biological substances; I69.318 Other symptoms and signs involving cognitive functions following cerebral infarction; Z79.899 Other long term (current) drug therapy
CPT/HCPCS: 70450; 70551; 80053; 81001; 83036; 83735; 84100; 84439; 84443; 84484; 85025; 85610; 85730; 87086; 87186; 92610; 93005; 97162; 97166; 97535; 99285; J0696; J1644; J2060; J2270; J2405; J3475; J7040; J7050

== ENCOUNTER → 2022-03-16 | Outpatient (CLI) | payer MEDICARE, BC, OTHER ==
[~2022-03-16] MED LIST changes: -CEPH250S35 PO; -LEVE500T8 PO; +LEVE750T66 PO; +PARO-38 PO; +SIMV-260 PO; -SIMV-46 PO
== END | disposition home or self-care (01) ==
LOC: SRCNTR 13:04
PROVIDERS: ATTEND Hospitalist
DX: I10 Essential (primary) hypertension (principal); E78.5 Hyperlipidemia, unspecified; E03.9 Hypothyroidism, unspecified; L08.89 Other specified local infections of the skin and subcutaneous tissue; R45.1 Restlessness and agitation; G40.909 Epilepsy, unspecified, not intractable, without status epilepticus; F32.A Depression, unspecified
CPT/HCPCS: Q3014

== ENCOUNTER 2022-06-15 07:11 | Inpatient (IN) | payer MEDICARE, BC, OTHER ==
[~2022-06-15] VITALS: Ht 160 cm; Wt 67.9 kg
[2022-06-15] MEDS ORDERED: 0.9% SODIUM CHLORIDE 10 ML SYRINGE IVP PRN (07:15)
[2022-06-15] MEDS ORDERED: SODIUM CHLORIDE 0.9% 2,100 ML IV ONE (07:15)
[2022-06-15] MEDS ORDERED: SODIUM CHLORIDE 0.9% 2,050 ML IV ONE (07:30)
[2022-06-15 08:05] LABS: BASOPHILS % (AUTO) 0.6 % (0.0-2.0); EOSINOPHILS % (AUTO) 1.3 % (1.0-6.0); HEMATOCRIT 31.8 % (36-46); HEMOGLOBIN 10.5 g/dL (12.0-16.0); LYMPHOCYTES # (AUTO) 1.3 K/uL (1.0-4.8); LYMPHOCYTES % (AUTO) 16.8 % (22.0-44.0); MEAN CORPUSCULAR HEMOGLOBIN 29.1 pg (26.0-34.0); MEAN CORPUSCULAR VOLUME 88 fL (80-100); MONOCYTES # (AUTO) 0.6 K/uL (0.1-1.0); MONOCYTES % (AUTO) 7.8 % (2.0-9.0); NEUTROPHILS # (AUTO) 5.8 K/uL (1.8-7.7); NEUTROPHILS % (AUTO) 73.5 % (40.0-70.0); PLATELET COUNT (AUTO) 183 K/uL (150-450); RED CELL DISTRIBUTION WIDTH 13.9 % (11.5-14.5)
[2022-06-15 08:15] LABS: ANION GAP 7 mmol/L (8-16); CALCIUM, TOTAL 7.9 mg/dL (8.8-10.5); CARBON DIOXIDE 27 mmol/L (22-29); CHLORIDE 109 mmol/L (98-107); CREATININE 0.71 mg/dL (0.60-1.30); GLOMERULAR FILTR. RATE CALC > 60 mL/min (>60); GLUCOSE,RANDOM 102 mg/dL (70-110); POTASSIUM 3.1 mmol/L (3.5-5.1); SODIUM SERUM 143 mmol/L (136-145); UREA NITROGEN, BLOOD 11 mg/dL (7-18)
[2022-06-15 08:20] LABS: ALANINE AMINOTRANSFERASE 17 U/L (12-78); ALKALINE PHOSPHATASE 58 U/L (46-116); ASPARTATE AMINOTRANSFERASE 18 U/L (15-37); BILIRUBIN,TOTAL 0.3 mg/dL (0.1-1.0); TOTAL PROTEIN, SERUM 6.4 g/dL (6.4-8.2)
[2022-06-15 08:23] LABS: LACTIC ACID 1.3 mmol/L (0.4-2.0)
[2022-06-15 09:22] LABS: APPEARANCE,URINE CLEAR (CLEAR); BILIRUBIN,URINE NEGATIVE (NEGATIVE); GLUCOSE, URINE (UA) NEGATIVE (NEGATIVE); KETONES,URINE NEGATIVE (NEGATIVE); LEUKOCYTE ESTERASE ,URINE NEGATIVE (NEGATIVE); NITRATE,URINE NEGATIVE (NEGATIVE); OCCULT BLOOD,URINE NEGATIVE (NEGATIVE); PH,URINE 6.5 (5.0-8.0); PROTEIN,URINE NEGATIVE (NEGATIVE); SPECIFIC GRAVITIY, URINE 1.015 (1.003-1.030); UROBILINOGEN,URINE <=1.0 mg/dL (<=1.0)
[2022-06-15] MEDS ORDERED: ONDANSETRON HCL 4 MG/2 ML VIAL IVP PRN (11:30)
[2022-06-15] MEDS ORDERED: HYDROCODONE/ACETAMINOPHEN 5-325 MG TABLET PO PRN (11:30)
[2022-06-15] MEDS ORDERED: MORPHINE SULFATE 2 MG/ML SYRINGE IVP PRN (11:30)
[2022-06-15] MEDS ORDERED: BISACODYL 10 MG RECTAL RECTAL SUPPOSITORY PR PRN (11:30)
[2022-06-15] MEDS ORDERED: ZOLPIDEM TARTRATE 5 MG TABLET PO PRN (11:30)
[2022-06-15] MEDS ORDERED: MAGNESIUM HYDROXIDE SUSPENSION 30 ML UDCUP PO PRN (11:30)
[2022-06-15 12:03] VITALS: BP 124/77
[2022-06-15] MEDS: POTASSIUM CHL 10 MEQ/WATER 50 ML IV SCH ×4 (13:46→20:49)
[2022-06-15 15:35] VITALS: BP 139/84
[2022-06-15] MEDS: HEPARIN SODIUM,PORCINE 5,000 UNITS/ML VIAL SQ SCH ×2 (15:57→23:43)
[2022-06-15] MEDS: SODIUM CHLORIDE 0.9% 1,000 ML IV SCH (15:58)
[2022-06-15] MEDS: ACETAMINOPHEN 325 MG TABLET PO PRN (18:10)
[2022-06-15 19:32] VITALS: BP 107/54
[2022-06-15] MEDS: DOCUSATE SODIUM 100 MG CAPSULE PO SCH (20:49)
[2022-06-16 04:16] VITALS: BP 140/78
[2022-06-16] MEDS: ACETAMINOPHEN 325 MG TABLET PO PRN (04:53)
[2022-06-16 07:52] LABS: BASOPHILS % (AUTO) 0.9 % (0.0-2.0); EOSINOPHILS % (AUTO) 2.4 % (1.0-6.0); HEMATOCRIT 32.7 % (36-46); HEMOGLOBIN 10.9 g/dL (12.0-16.0); LYMPHOCYTES # (AUTO) 1.7 K/uL (1.0-4.8); LYMPHOCYTES % (AUTO) 19.5 % (22.0-44.0); MEAN CORPUSCULAR HEMOGLOBIN 29.2 pg (26.0-34.0); MEAN CORPUSCULAR HGB CONC 33.3 G/dL (31.0-37.0); MEAN CORPUSCULAR VOLUME 88 fL (80-100); MONOCYTES # (AUTO) 0.6 K/uL (0.1-1.0); MONOCYTES % (AUTO) 6.9 % (2.0-9.0); NEUTROPHILS # (AUTO) 6.1 K/uL (1.8-7.7); NEUTROPHILS % (AUTO) 70.3 % (40.0-70.0); PLATELET COUNT (AUTO) 204 K/uL (150-450); RED BLOOD CELL COUNT(AUTO) 3.73 MIL/uL (4.00-5.20); RED CELL DISTRIBUTION WIDTH 14.4 % (11.5-14.5)
[2022-06-16 08:01] LABS: ANION GAP 7 mmol/L (8-16); CALCIUM, TOTAL 8.5 mg/dL (8.8-10.5); CARBON DIOXIDE 26 mmol/L (22-29); CHLORIDE 109 mmol/L (98-107); CREATININE 0.85 mg/dL (0.60-1.30); GLOMERULAR FILTR. RATE CALC > 60 mL/min (>60); GLUCOSE,RANDOM 142 mg/dL (70-110); POTASSIUM 3.7 mmol/L (3.5-5.1); SODIUM SERUM 142 mmol/L (136-145); UREA NITROGEN, BLOOD 9 mg/dL (7-18)
[2022-06-16 08:10] VITALS: BP 123/74
[2022-06-16] MEDS: LEVOTHYROXINE SODIUM 75 MCG TABLET PO SCH (08:20)
[2022-06-16] MEDS: AmLODIPine BESYLATE 2.5 MG TABLET PO SCH (08:21)
[2022-06-16] MEDS: CLOPIDOGREL BISULFATE 75 MG TABLET PO SCH (08:21)
[2022-06-16] MEDS: DOCUSATE SODIUM 100 MG CAPSULE PO SCH ×2 (08:21→20:06)
[2022-06-16] MEDS: PANTOPRAZOLE SODIUM 40 MG DR TABLET PO SCH (08:21)
[2022-06-16] MEDS: LevETIRAcetam 250 MG TABLET PO SCH (08:21)
[2022-06-16] MEDS: HEPARIN SODIUM,PORCINE 5,000 UNITS/ML VIAL SQ SCH ×3 (08:22→23:24)
[2022-06-16] MEDS: SODIUM CHLORIDE 0.9% 1,000 ML IV SCH (12:45)
[2022-06-16 16:00] VITALS: BP 124/65
[2022-06-16 19:05] VITALS: BP 112/55
[2022-06-17 06:00] VITALS: BP 125/73
[2022-06-17] MEDS: SODIUM CHLORIDE 0.9% 1,000 ML IV SCH (06:47)
[2022-06-17] MEDS: DOCUSATE SODIUM 100 MG CAPSULE PO SCH ×2 (08:03→19:56)
[2022-06-17] MEDS: AmLODIPine BESYLATE 2.5 MG TABLET PO SCH (08:04)
[2022-06-17] MEDS: LevETIRAcetam 250 MG TABLET PO SCH (08:04)
[2022-06-17] MEDS: CLOPIDOGREL BISULFATE 75 MG TABLET PO SCH (08:05)
[2022-06-17] MEDS: LEVOTHYROXINE SODIUM 75 MCG TABLET PO SCH (08:05)
[2022-06-17] MEDS: PANTOPRAZOLE SODIUM 40 MG DR TABLET PO SCH (08:05)
[2022-06-17] MEDS: HEPARIN SODIUM,PORCINE 5,000 UNITS/ML VIAL SQ SCH ×3 (08:09→23:25)
[2022-06-17 08:21] VITALS: BP 133/70
[2022-06-17] MEDS: ACETAMINOPHEN 325 MG TABLET PO PRN (10:54)
[2022-06-17] MEDS ORDERED: PARoxetine HCL 10 MG TABLET PO SCH (11:45)
[2022-06-17] MEDS ORDERED: MAGNESIUM SULFATE 2 GM, MVI, ADULT NO.1 WITH VIT K 10 ML, THIAMINE 100 MG, FOLIC ACID 1... IV ONE ×5 (12:45)
[2022-06-17] MEDS: PARoxetine HCL 20 MG TABLET PO SCH ×2 (12:45→12:48)
[2022-06-17] MEDS: RisperiDONE 0.5 MG TABLET PO SCH (19:56)
[2022-06-17 20:36] VITALS: BP 114/57
[2022-06-18 03:29] VITALS: BP 124/66
[2022-06-18 07:10] LABS: ANION GAP 5 mmol/L (8-16); CALCIUM, TOTAL 8.6 mg/dL (8.8-10.5); CARBON DIOXIDE 28 mmol/L (22-29); CHLORIDE 108 mmol/L (98-107); CREATININE 0.81 mg/dL (0.60-1.30); GLOMERULAR FILTR. RATE CALC > 60 mL/min (>60); GLUCOSE,RANDOM 92 mg/dL (70-110); POTASSIUM 3.9 mmol/L (3.5-5.1); SODIUM SERUM 141 mmol/L (136-145); UREA NITROGEN, BLOOD 8 mg/dL (7-18)
[2022-06-18] MEDS: CLOPIDOGREL BISULFATE 75 MG TABLET PO SCH (07:46)
[2022-06-18] MEDS: AmLODIPine BESYLATE 2.5 MG TABLET PO SCH (07:47)
[2022-06-18] MEDS: LevETIRAcetam 250 MG TABLET PO SCH (07:47)
[2022-06-18] MEDS: PARoxetine HCL 20 MG TABLET PO SCH (07:47)
[2022-06-18] MEDS: DOCUSATE SODIUM 100 MG CAPSULE PO SCH ×2 (07:47→20:41)
[2022-06-18] MEDS: HEPARIN SODIUM,PORCINE 5,000 UNITS/ML VIAL SQ SCH ×3 (07:47→23:43)
[2022-06-18] MEDS: LEVOTHYROXINE SODIUM 75 MCG TABLET PO SCH (07:47)
[2022-06-18] MEDS: PANTOPRAZOLE SODIUM 40 MG DR TABLET PO SCH (07:47)
[2022-06-18 08:17] VITALS: BP 130/76
[2022-06-18 12:06] LABS: BASOPHILS % (AUTO) 0.6 % (0.0-2.0); EOSINOPHILS % (AUTO) 1.8 % (1.0-6.0); HEMATOCRIT 33.6 % (36-46); LYMPHOCYTES % (AUTO) 22.7 % (22.0-44.0); MEAN CORPUSCULAR HEMOGLOBIN 28.6 pg (26.0-34.0); MEAN CORPUSCULAR HGB CONC 32.6 G/dL (31.0-37.0); MEAN CORPUSCULAR VOLUME 88 fL (80-100); MONOCYTES # (AUTO) 0.7 K/uL (0.1-1.0); MONOCYTES % (AUTO) 7.7 % (2.0-9.0); NEUTROPHILS # (AUTO) 5.9 K/uL (1.8-7.7); NEUTROPHILS % (AUTO) 67.2 % (40.0-70.0); PLATELET COUNT (AUTO) 219 K/uL (150-450); RED BLOOD CELL COUNT(AUTO) 3.83 MIL/uL (4.00-5.20); RED CELL DISTRIBUTION WIDTH 14.4 % (11.5-14.5)
[2022-06-18 15:14] VITALS: BP 119/58
[2022-06-18 19:35] VITALS: BP 112/63
[2022-06-18] MEDS: RisperiDONE 0.5 MG TABLET PO SCH (20:41)
[2022-06-19 04:00] VITALS: BP 112/57
[2022-06-19 07:22] VITALS: BP 136/78
[2022-06-19] MEDS: LevETIRAcetam 250 MG TABLET PO SCH (08:12)
[2022-06-19] MEDS: DOCUSATE SODIUM 100 MG CAPSULE PO SCH ×2 (08:13→20:54)
[2022-06-19] MEDS: CLOPIDOGREL BISULFATE 75 MG TABLET PO SCH (08:13)
[2022-06-19] MEDS: HEPARIN SODIUM,PORCINE 5,000 UNITS/ML VIAL SQ SCH ×3 (08:13→23:19)
[2022-06-19] MEDS: AmLODIPine BESYLATE 2.5 MG TABLET PO SCH (08:13)
[2022-06-19] MEDS: PANTOPRAZOLE SODIUM 40 MG DR TABLET PO SCH (08:13)
[2022-06-19] MEDS: PARoxetine HCL 20 MG TABLET PO SCH (08:13)
[2022-06-19] MEDS: LEVOTHYROXINE SODIUM 75 MCG TABLET PO SCH (08:15)
[2022-06-19 16:32] VITALS: BP 124/75
[2022-06-19 19:41] VITALS: BP 117/69
[2022-06-19] MEDS: RisperiDONE 0.5 MG TABLET PO SCH (20:54)
[2022-06-20 04:40] VITALS: BP 123/69
[2022-06-20 08:29] VITALS: BP 119/52
[2022-06-20 08:40] VITALS: BP 119/52
[2022-06-20] MEDS: HEPARIN SODIUM,PORCINE 5,000 UNITS/ML VIAL SQ SCH ×2 (09:46→16:26)
[2022-06-20] MEDS: DOCUSATE SODIUM 100 MG CAPSULE PO SCH (09:46)
[2022-06-20] MEDS: CLOPIDOGREL BISULFATE 75 MG TABLET PO SCH (09:46)
[2022-06-20] MEDS: PANTOPRAZOLE SODIUM 40 MG DR TABLET PO SCH (09:47)
[2022-06-20] MEDS: AmLODIPine BESYLATE 2.5 MG TABLET PO SCH (09:47)
[2022-06-20] MEDS: PARoxetine HCL 20 MG TABLET PO SCH (09:48)
[2022-06-20] MEDS: LEVOTHYROXINE SODIUM 75 MCG TABLET PO SCH (09:48)
[2022-06-20] MEDS: LevETIRAcetam 250 MG TABLET PO SCH (09:55)
[2022-06-20 13:54] LABS: COVID AG,FIA SOURCE NASAL SWAB
[2022-06-20 15:18] VITALS: BP 108/59
== END 2022-06-20 18:00 | DRG 640 ==
LOC: EMS 07:13 → 6S 10:40
PROVIDERS: ADMIT Internal Medicine; ATTEND Internal Medicine
DX: E86.0 Dehydration (principal); G93.41 Metabolic encephalopathy; F03.918 Unspecified dementia, unspecified severity, with other behavioral disturbance; E87.6 Hypokalemia; I10 Essential (primary) hypertension; E03.9 Hypothyroidism, unspecified; E78.00 Pure hypercholesterolemia, unspecified; Z66 Do not resuscitate; Z20.822 Contact with and (suspected) exposure to COVID-19; I69.322 Dysarthria following cerebral infarction; Z88.8 Allergy status to other drugs, medicaments and biological substances; Z91.09 Other allergy status, other than to drugs and biological substances; Z79.02 Long term (current) use of antithrombotics/antiplatelets; Z79.899 Other long term (current) drug therapy; Z83.3 Family history of diabetes mellitus; Z82.49 Family history of ischemic heart disease and other diseases of the circulatory system; Z86.718 Personal history of other venous thrombosis and embolism
CPT/HCPCS: 51701; 70450; 71045; 80048; 80053; 81003; 83605; 84132; 84145; 85025; 85610; 87040; 93005; 97163; 97530; 99285; J1644; J3411; J3475; J3480; J3490; J7030; 36415-L1; 36415-TC